=== PATIENT | female | born 1965 | race American Indian/Alaskan Native ===

== ENCOUNTER 2017-02-21 16:02 | Inpatient (IN) | payer OTHER ==
[2017-02-21] MEDS ORDERED: D50W (25GM) IV ONE ×2 (16:08→16:19)
[2017-02-21] MEDS ORDERED: NACL 0.9% 1000 ML 2,000 ML ONE (16:08)
[2017-02-21] MEDS ORDERED: QUELICIN IV ONE (16:19)
[2017-02-21] MEDS ORDERED: AMIDATE IV ONE ×2 (16:19→22:29)
[2017-02-21] MEDS ORDERED: NACL 0.9% 1000 ML 1,000 ML IV ONE ×3 (16:20→17:43)
[2017-02-21] MEDS ORDERED: ARTIFICIAL TEARS OPHTH OINT OU PRN (16:21)
[2017-02-21] MEDS ORDERED: VASELINE LIP THERAPY TP PRN (16:21)
--- NOTE | 2017-02-21 16:26 | Emergency Department Report ---
ED Altered Mental Status HPI - General Stated Complaint: AMS Time Seen by Provider: 02/21/17 16:17 Source: family, EMS Mode of arrival: Stretcher Limitations: Altered Mental Status - History of Present Illness Initial Comments: 51-year-old female with a past medical history end-stage metastatic ovarian cancer presents to the hospital with complaints of altered mental status and respiratory distress. Patient lives at home with her son. Son states that yesterday patient was normal and had physical therapy. Chronic poor appetite reported. Patient did not see his mother this morning but saw her when he returned home at 3 PM. She appeared not feeling well but was responsive. EMS reported difficulty breathing and accucheck in the 50s. No IV access prior to arrival. Upon arrival patient was having agonal respirations and minimally responsive therefore she was prepped for intubation. Son states that the patient is full code. Her oncologist discontinued further chemotherapy since patient was not responding to treatment. She has known metastasis to the liver. Patient states that since liver biopsy she has had elevated hemidiaphragm. - Related Data Allergies Allergy/AdvReac Type Severity Reaction Status Date / Time No Known Allergies Allergy Unverified 02/21/17 17:14 ED Review of Systems ROS: Stated complaint: AMS Other details as noted in HPI Comment: Unobtainable due to pts medical conditions (unresponsive) ED Physical Exam - General Limitations: Altered Mental Status - Other Other exam information: General: Unresponsive Head exam: Atraumatic, normocephalic Eyes exam: Icteric sclera ENT: food/vomitus in the posterior pharynx Neck exam: Normal inspection Respiratory exam: Agonal respirations clear to auscultation Cardiovascular: Normal rate and rhythm, normal heart sounds Abdomen: Soft, nondistended, midline vertical lower abdominal scar Extremity: Full range of motion normal inspection no deformity Back: Normal Inspection, full range of motion, no tenderness Neurologic: GCS equals 3. Patient not withdrawing to pain, unresponsive, would not follow any command open eyes on command Skin: Warm, dry, intact ED Course Vital Signs 02/21/17 02/21/17 02/21/17 15:58 16:00 16:10 Temperature Pulse Rate 67 82 83 Respiratory 12 20 12 Rate Blood Pressure 118/94 75/37 O2 Sat by Pulse Oximetry 02/21/17 02/21/17 02/21/17 16:20 16:21 16:30 Temperature Pulse Rate 77 76 70 Respiratory 12 18 Rate Blood Pressure 66/45 87/30 82/29 O2 Sat by Pulse 100 99 Oximetry 02/21/17 02/21/17 02/21/17 16:40 16:41 16:50 Temperature 95.4 F L Pulse Rate 75 82 77 Respiratory 19 6 L 15 Rate Blood Pressure 84/29 81/45 87/30 O2 Sat by Pulse 100 Oximetry 02/21/17 02/21/17 02/21/17 17:00 17:10 17:20 Temperature Pulse Rate 75 77 76 Respiratory 16 14 18 Rate Blood Pressure 84/23 72/31 86/35 O2 Sat by Pulse 100 100 Oximetry 02/21/17 02/21/17 02/21/17 17:30 17:40 17:50 Temperature Pulse Rate 77 74 75 Respiratory 18 19 19 Rate Blood Pressure 88/22 78/22 73/30 O2 Sat by Pulse 94 99 Oximetry 02/21/17 02/21/17 02/21/17 18:00 18:10 18:20 Temperature Pulse Rate 72 72 75 Respiratory 20 14 14 Rate Blood Pressure 73/30 67/31 71/26 O2 Sat by Pulse 98 90 Oximetry 02/21/17 02/21/17 02/21/17 18:30 18:40 18:50 Temperature Pulse Rate 75 75 78 Respiratory 19 19 17 Rate Blood Pressure 79/32 85/36 90/35 O2 Sat by Pulse 87 94 95 Oximetry 02/21/17 19:00 Temperature Pulse Rate 72 Respiratory 19 Rate Blood Pressure 79/35 O2 Sat by Pulse 88 Oximetry - Reevaluation(s) Reevaluation #1: 02/21/17 16:30 Patient's port accessed upon arrival. Patient received etomidate and succinylcholine via to intubation. Accu-Chek was less than 35 therefore patient received 1 amp of D50 after intubation. - ABG Interpretation Ph: 7.049 PCO2: 24 PO2: 140 Bicarbonate: 7 Interpretation: respiratory alkalosis, metabolic acidosis Additional Comments: Primary metabolic acidosis - EJ/Peripheral Line Neck L Time Out Performed: Yes Indications: multiple IV sites needed Size: 20 Dressing Placed: Tegaderm Patient Tolerated Procedure: well, other (line infiltrated resulting in subcutaneous fluid, removed) Additional Comments: same area was previously stuck by ems Neck R Time Out Performed: Yes Indications: multiple IV sites needed Skin Cleansed in Sterile Fashion: Yes Size: 20 Dressing Placed: Tegaderm Patient Tolerated Procedure: well, other (this ej line blew as well) - Intubation Time Out Performed: Yes Sedative: Etomidate Mg Given: 20 Paralytic: Succinylcholine Mg Given: 100 Laryngoscope: Rosemary Size: 4 ET Tube Size: 7.5 Tube Secured Depth (cm): 22 Tube Secured Location: lips Tube Placement Confirmation: visualized tube passing t, equal breath sounds bilat, no breath sounds over epi, confirmation by capnometr Patient Tolerated Procedure: well Intubation Complications: none - Lab Data Result diagrams: 02/21/17 16:30 02/21/17 16:30 Lab Results 02/21/17 02/21/17 02/21/17 Range/Units 16:09 16:25 16:28 WBC (4.5-11.0) K/mm3 RBC (3.65-5.03) M/mm3 Hgb (10.1-14.3) gm/dl Hct (30.3-42.9) % MCV (79-97) fl MCH (28-32) pg MCHC (30-34) % RDW (13.2-15.2) % Plt Count (140-440) K/mm3 Add Manual Diff Total Counted Seg Neuts % (Manual) (40.0-70.0) % Band Neutrophils % % Lymphocytes % (Manual) (13.4-35.0) % Reactive Lymphs % (Man) % Monocytes % (Manual) (0.0-7.3) % Eosinophils % (Manual) (0.0-4.3) % Basophils % (Manual) (0.0-1.8) % Metamyelocytes % % Myelocytes % % Promyelocytes % % Blast Cells % % Nucleated RBC % (0.0-0.9) % Seg Neutrophils # Man (1.8-7.7) K/mm3 Band Neutrophils # K/mm3 Lymphocytes # (Manual) (1.2-5.4) K/mm3 Abs React Lymphs (Man) K/mm3 Monocytes # (Manual) (0.0-0.8) K/mm3 Eosinophils # (Manual) (0.0-0.4) K/mm3 Basophils # (Manual) (0.0-0.1) K/mm3 Metamyelocytes # K/mm3 Myelocytes # K/mm3 Promyelocytes # K/mm3 Blast Cells # K/mm3 WBC Morphology Hypersegmented Neuts Hyposegmented Neuts Hypogranular Neuts Smudge Cells Toxic Granulation Toxic Vacuolation Dohle Bodies Pelger-Huet Anomaly [place] Rods Platelet Estimate Clumped Platelets Plt Clumps, EDTA Large Platelets Giant Platelets Platelet Satelliting Plt Morphology Comment RBC Morphology Dimorphic RBCs Polychromasia Hypochromasia Poikilocytosis Anisocytosis Microcytosis Macrocytosis Spherocytes Pappenheimer Bodies Sickle Cells Target Cells Tear Drop Cells Ovalocytes Helmet Cells Olivo-[place] Bodies [place] Rings Alex Cells Bite Cells Crenated Cell Elliptocytes Acanthocytes (Spur) Rouleaux Hemoglobin C Crystals Schistocytes Malaria parasites Ford Bodies Hem Pathologist Commnt PT (12.2-14.9) Sec. INR (0.87-1.13) APTT (24.2-36.6) Sec. POC ABG pH (7.35-7.45) POC ABG pCO2 (35-45) POC ABG pO2 (80-105) POC ABG HCO3 POC ABG Total CO2 POC ABG O2 Sat POC ABG Base Excess VBG pH (7.320-7.420) FiO2 % Sodium (137-145) mmol/L Potassium (3.6-5.0) mmol/L Chloride (98-107) mmol/L Carbon Dioxide (22-30) mmol/L Anion Gap mmol/L BUN (7-17) mg/dL Creatinine (0.7-1.2) mg/dL Estimated GFR ml/min BUN/Creatinine Ratio % Glucose (65-100) mg/dL POC Glucose < 40 L 141 H (70-105) Lactic Acid (0.7-2.0) mmol/L Calcium (8.4-10.2) mg/dL Magnesium (1.7-2.3) mg/dL Total Bilirubin (0.1-1.2) mg/dL AST (5-40) units/L ALT (7-56) units/L Alkaline Phosphatase (35-129) units/L Ammonia (25-60) umol/L Total Creatine Kinase (30-135) units/L CK-MB (CK-2) (0.0-4.0) ng/mL CK-MB (CK-2) Rel Index (0-4) Troponin T (0.00-0.029) ng/mL Total Protein (6.3-8.2) g/dL Albumin (3.9-5) g/dL Albumin/Globulin Ratio % Urine Color (Yellow) Urine Turbidity (Clear) Urine pH (5.0-7.0) Ur Specific [place] (1.003-1.030) Urine Protein (Negative) mg/dL Urine Glucose (UA) (Negative) mg/dL Urine Ketones (Negative) mg/dL Urine Blood (Negative) Urine Nitrite (Negative) Urine Bilirubin (Negative) Urine Urobilinogen (<2.0) mg/dL Ur Leukocyte Esterase (Negative) Urine WBC (Auto) (0.0-6.0) /HPF Urine RBC (Auto) (0.0-6.0) /HPF U Epithel Cells (Auto) (0-13.0) /HPF Hyaline Casts /LPF Urine Mucus /HPF Blood Type B POSITIVE Antibody Screen Negative Crossmatch See Detail 02/21/17 02/21/17 02/21/17 Range/Units 16:30 16:30 16:30 WBC 36.6 H (4.5-11.0) K/mm3 RBC 1.79 L (3.65-5.03) M/mm3 Hgb 4.3 L* (10.1-14.3) gm/dl Hct 15.2 L* (30.3-42.9) % MCV 85 (79-97) fl MCH 24 L (28-32) pg MCHC 29 L (30-34) % RDW 29.3 H (13.2-15.2) % Plt Count 105 L (140-440) K/mm3 Add Manual Diff Complete Total Counted 200 Seg Neuts % (Manual) 86.0 H (40.0-70.0) % Band Neutrophils % 6.0 % Lymphocytes % (Manual) 5.0 L (13.4-35.0) % Reactive Lymphs % (Man) 0.5 % Monocytes % (Manual) 1.0 (0.0-7.3) % Eosinophils % (Manual) 0 (0.0-4.3) % Basophils % (Manual) 0 (0.0-1.8) % Metamyelocytes % 1.0 % Myelocytes % 0.5 % Promyelocytes % 0 % Blast Cells % 0 % Nucleated RBC % 7.0 H (0.0-0.9) % Seg Neutrophils # Man 31.5 H (1.8-7.7) K/mm3 Band Neutrophils # 2.2 K/mm3 Lymphocytes # (Manual) 1.8 (1.2-5.4) K/mm3 Abs React Lymphs (Man) 0.2 K/mm3 Monocytes # (Manual) 0.4 (0.0-0.8) K/mm3 Eosinophils # (Manual) 0.0 (0.0-0.4) K/mm3 Basophils # (Manual) 0.0 (0.0-0.1) K/mm3 Metamyelocytes # 0.4 K/mm3 Myelocytes # 0.2 K/mm3 Promyelocytes # 0.0 K/mm3 Blast Cells # 0.0 K/mm3 WBC Morphology Not Reportable Hypersegmented Neuts Not Reportable Hyposegmented Neuts Not Reportable Hypogranular Neuts Not Reportable Smudge Cells Not Reportable Toxic Granulation Not Reportable Toxic Vacuolation Not Reportable Dohle Bodies Not Reportable Pelger-Huet Anomaly Not Reportable [place] Rods Not Reportable Platelet Estimate Consistent w auto Clumped Platelets Not Reportable Plt Clumps, EDTA Not Reportable Large Platelets 1+ Giant Platelets Not Reportable Platelet Satelliting Not Reportable Plt Morphology Comment Not Reportable RBC Morphology Not Reportable Dimorphic RBCs Yes Polychromasia Not Reportable Hypochromasia 2+ Poikilocytosis Not Reportable Anisocytosis 2+ Microcytosis Not Reportable Macrocytosis Not Reportable Spherocytes Not Reportable Pappenheimer Bodies Not Reportable Sickle Cells Not Reportable Target Cells Not Reportable Tear Drop Cells Not Reportable Ovalocytes Not Reportable Helmet Cells Not Reportable Olivo-[place] Bodies Not Reportable [place] Rings Not Reportable [place] Cells Not Reportable Bite Cells Not Reportable Crenated Cell Not Reportable Elliptocytes Not Reportable Acanthocytes (Spur) Not Reportable Rouleaux Not Reportable Hemoglobin C Crystals Not Reportable Schistocytes Not Reportable Malaria parasites Not Reportable Ford Bodies Not Reportable Hem Pathologist Commnt No PT 70.3 H (12.2-14.9) Sec. INR 8.31 H* (0.87-1.13) APTT 47.0 H (24.2-36.6) Sec. POC ABG pH (7.35-7.45) POC ABG pCO2 (35-45) POC ABG pO2 (80-105) POC ABG HCO3 POC ABG Total CO2 POC ABG O2 Sat POC ABG Base Excess VBG pH (7.320-7.420) FiO2 % Sodium 133 L (137-145) mmol/L Potassium 5.5 H (3.6-5.0) mmol/L Chloride 90.5 L (98-107) mmol/L Carbon Dioxide 7 L* (22-30) mmol/L Anion Gap 41 mmol/L BUN 71 H (7-17) mg/dL Creatinine 2.1 H (0.7-1.2) mg/dL Estimated GFR 30 ml/min BUN/Creatinine Ratio 33.80 % Glucose 264 H (65-100) mg/dL POC Glucose (70-105) Lactic Acid (0.7-2.0) mmol/L Calcium 8.9 (8.4-10.2) mg/dL Magnesium (1.7-2.3) mg/dL Total Bilirubin 4.6 H (0.1-1.2) mg/dL AST 561 H (5-40) units/L ALT 179 H (7-56) units/L Alkaline Phosphatase 434 H (35-129) units/L Ammonia (25-60) umol/L Total Creatine Kinase 29 L (30-135) units/L CK-MB (CK-2) 1.4 (0.0-4.0) ng/mL CK-MB (CK-2) Rel Index 4.8 H (0-4) Troponin T < 0.010 (0.00-0.029) ng/mL Total Protein 6.2 L (6.3-8.2) g/dL Albumin 1.7 L (3.9-5) g/dL Albumin/Globulin Ratio 0.4 % Urine Color (Yellow) Urine Turbidity (Clear) Urine pH (5.0-7.0) Ur Specific [place] (1.003-1.030) Urine Protein (Negative) mg/dL Urine Glucose (UA) (Negative) mg/dL Urine Ketones (Negative) mg/dL Urine Blood (Negative) Urine Nitrite (Negative) Urine Bilirubin (Negative) Urine Urobilinogen (<2.0) mg/dL Ur Leukocyte Esterase (Negative) Urine WBC (Auto) (0.0-6.0) /HPF Urine RBC (Auto) (0.0-6.0) /HPF U Epithel Cells (Auto) (0-13.0) /HPF Hyaline Casts /LPF Urine Mucus /HPF Blood Type Antibody Screen Crossmatch 02/21/17 02/21/17 02/21/17 Range/Units 16:30 17:05 17:28 WBC (4.5-11.0) K/mm3 RBC (3.65-5.03) M/mm3 Hgb (10.1-14.3) gm/dl Hct (30.3-42.9) % MCV (79-97) fl MCH (28-32) pg MCHC (30-34) % RDW (13.2-15.2) % Plt Count (140-440) K/mm3 Add Manual Diff Total Counted Seg Neuts % (Manual) (40.0-70.0) % Band Neutrophils % % Lymphocytes % (Manual) (13.4-35.0) % Reactive Lymphs % (Man) % Monocytes % (Manual) (0.0-7.3) % Eosinophils % (Manual) (0.0-4.3) % Basophils % (Manual) (0.0-1.8) % Metamyelocytes % % Myelocytes % % Promyelocytes % % Blast Cells % % Nucleated RBC % (0.0-0.9) % Seg Neutrophils # Man (1.8-7.7) K/mm3 Band Neutrophils # K/mm3 Lymphocytes # (Manual) (1.2-5.4) K/mm3 Abs React Lymphs (Man) K/mm3 Monocytes # (Manual) (0.0-0.8) K/mm3 Eosinophils # (Manual) (0.0-0.4) K/mm3 Basophils # (Manual) (0.0-0.1) K/mm3 Metamyelocytes # K/mm3 Myelocytes # K/mm3 Promyelocytes # K/mm3 Blast Cells # K/mm3 WBC Morphology Hypersegmented Neuts Hyposegmented Neuts Hypogranular Neuts Smudge Cells Toxic Granulation Toxic Vacuolation Dohle Bodies Pelger-Huet Anomaly [place] Platelet Estimate Clumped Platelets Plt Clumps, EDTA Large Platelets Giant Platelets Platelet Satelliting Plt Morphology Comment RBC Morphology Dimorphic RBCs Polychromasia Hypochromasia Poikilocytosis Anisocytosis Microcytosis Macrocytosis Spherocytes Pappenheimer Bodies Sickle Cells Target Cells Tear Drop Cells Ovalocytes Helmet Cells Olivo-[place] Bodies [place] Rings Alex Cells Bite Cells Crenated Cell Elliptocytes Acanthocytes (Spur) Rouleaux Hemoglobin C Crystals Schistocytes Malaria parasites [place] Bodies Hem Pathologist Commnt PT (12.2-14.9) Sec. INR (0.87-1.13) APTT (24.2-36.6) Sec. POC ABG pH (7.35-7.45) POC ABG pCO2 (35-45) POC ABG pO2 (80-105) POC ABG HCO3 POC ABG Total CO2 POC ABG O2 Sat POC ABG Base Excess VBG pH (7.320-7.420) FiO2 % Sodium (137-145) mmol/L Potassium (3.6-5.0) mmol/L Chloride (98-107) mmol/L Carbon Dioxide (22-30) mmol/L Anion Gap mmol/L BUN (7-17) mg/dL Creatinine (0.7-1.2) mg/dL Estimated GFR ml/min BUN/Creatinine Ratio % Glucose (65-100) mg/dL POC Glucose 118 H (70-105) Lactic Acid (0.7-2.0) mmol/L Calcium (8.4-10.2) mg/dL Magnesium 2.9 H (1.7-2.3) mg/dL Total Bilirubin (0.1-1.2) mg/dL AST (5-40) units/L ALT (7-56) units/L Alkaline Phosphatase (35-129) units/L Ammonia (25-60) umol/L Total Creatine Kinase (30-135) units/L CK-MB (CK-2) (0.0-4.0) ng/mL CK-MB (CK-2) Rel Index (0-4) Troponin T (0.00-0.029) ng/mL Total Protein (6.3-8.2) g/dL Albumin (3.9-5) g/dL Albumin/Globulin Ratio % Urine Color [place] (Yellow) Urine Turbidity Cloudy (Clear) Urine pH 5.0 (5.0-7.0) Ur Specific [place] 1.016 (1.003-1.030) Urine Protein 100 mg/dl (Negative) mg/dL Urine Glucose (UA) Negative (Negative) mg/dL Urine Ketones Trace (Negative) mg/dL Urine Blood Negative (Negative) Urine Nitrite Negative (Negative) Urine Bilirubin Negative (Negative) Urine Urobilinogen 4.0 (<2.0) mg/dL Ur Leukocyte Esterase Negative (Negative) Urine WBC (Auto) 6.0 (0.0-6.0) /HPF Urine RBC (Auto) 1.0 (0.0-6.0) /HPF U Epithel Cells (Auto) 1.0 (0-13.0) /HPF Hyaline Casts 50 /LPF Urine Mucus Few /HPF Blood Type Antibody Screen Crossmatch 02/21/17 02/21/17 02/21/17 Range/Units 17:34 Unknown Unknown WBC (4.5-11.0) K/mm3 RBC (3.65-5.03) M/mm3 Hgb (10.1-14.3) gm/dl Hct (30.3-42.9) % MCV (79-97) fl MCH (28-32) pg MCHC (30-34) % RDW (13.2-15.2) % Plt Count (140-440) K/mm3 Add Manual Diff Total Counted Seg Neuts % (Manual) (40.0-70.0) % Band Neutrophils % % Lymphocytes % (Manual) (13.4-35.0) % Reactive Lymphs % (Man) % Monocytes % (Manual) (0.0-7.3) % Eosinophils % (Manual) (0.0-4.3) % Basophils % (Manual) (0.0-1.8) % Metamyelocytes % % Myelocytes % % Promyelocytes % % Blast Cells % % Nucleated RBC % (0.0-0.9) % Seg Neutrophils # Man (1.8-7.7) K/mm3 Band Neutrophils # K/mm3 Lymphocytes # (Manual) (1.2-5.4) K/mm3 Abs React Lymphs (Man) K/mm3 Monocytes # (Manual) (0.0-0.8) K/mm3 Eosinophils # (Manual) (0.0-0.4) K/mm3 Basophils # (Manual) (0.0-0.1) K/mm3 Metamyelocytes # K/mm3 Myelocytes # K/mm3 Promyelocytes # K/mm3 Blast Cells # K/mm3 WBC Morphology Hypersegmented Neuts Hyposegmented Neuts Hypogranular Neuts Smudge Cells Toxic Granulation Toxic Vacuolation Dohle Bodies Pelger-Huet Anomaly [place] Rod[place] Platelet Estimate Clumped Platelets Plt Clumps, EDTA Large Platelets Giant Platelets Platelet Satelliting Plt Morphology Comment RBC Morphology Dimorphic RBCs Polychromasia Hypochromasia Poikilocytosis Anisocytosis Microcytosis Macrocytosis Spherocytes Pappenheimer Bodies Sickle Cells Target Cells Tear Drop Cells Ovalocytes Helmet Cells Olivo-[place] Bodies [place] Rings [place] Cells Bite Cells Crenated Cell Elliptocytes Acanthocytes (Spur) Rouleaux Hemoglobin C Crystals Schistocytes Malaria parasites [place] Bodies Hem Pathologist Commnt PT (12.2-14.9) Sec. INR (0.87-1.13) APTT (24.2-36.6) Sec. POC ABG pH 7.049 L (7.35-7.45) POC ABG pCO2 25.2 L (35-45) POC ABG pO2 140 H (80-105) POC ABG HCO3 7.0 POC ABG Total CO2 8 POC ABG O2 Sat 98 POC ABG Base Excess -24 VBG pH 7.125 L* (7.320-7.420) FiO2 50 % Sodium (137-145) mmol/L Potassium (3.6-5.0) mmol/L Chloride (98-107) mmol/L Carbon Dioxide (22-30) mmol/L Anion Gap mmol/L BUN (7-17) mg/dL Creatinine (0.7-1.2) mg/dL Estimated GFR ml/min BUN/Creatinine Ratio % Glucose (65-100) mg/dL POC Glucose (70-105) Lactic Acid 18.4 H* (0.7-2.0) mmol/L Calcium (8.4-10.2) mg/dL Magnesium (1.7-2.3) mg/dL Total Bilirubin (0.1-1.2) mg/dL AST (5-40) units/L ALT (7-56) units/L Alkaline Phosphatase (35-129) units/L Ammonia (25-60) umol/L Total Creatine Kinase (30-135) units/L CK-MB (CK-2) (0.0-4.0) ng/mL CK-MB (CK-2) Rel Index (0-4) Troponin T (0.00-0.029) ng/mL Total Protein (6.3-8.2) g/dL Albumin (3.9-5) g/dL Albumin/Globulin Ratio % Urine Color (Yellow) Urine Turbidity (Clear) Urine pH (5.0-7.0) Ur Specific [place] (1.003-1.030) Urine Protein (Negative) mg/dL Urine Glucose (UA) (Negative) mg/dL Urine Ketones (Negative) mg/dL Urine Blood (Negative) Urine Nitrite (Negative) Urine Bilirubin (Negative) Urine Urobilinogen (<2.0) mg/dL Ur Leukocyte Esterase (Negative) Urine WBC (Auto) (0.0-6.0) /HPF Urine RBC (Auto) (0.0-6.0) /HPF U Epithel Cells (Auto) (0-13.0) /HPF Hyaline Casts /LPF Urine Mucus /HPF Blood Type Antibody Screen Crossmatch 02/21/17 Range/Units Unknown WBC (4.5-11.0) K/mm3 RBC (3.65-5.03) M/mm3 Hgb (10.1-14.3) gm/dl Hct (30.3-42.9) % MCV (79-97) fl MCH (28-32) pg MCHC (30-34) % RDW (13.2-15.2) % Plt Count (140-440) K/mm3 Add Manual Diff Total Counted Seg Neuts % (Manual) (40.0-70.0) % Band Neutrophils % % Lymphocytes % (Manual) (13.4-35.0) % Reactive Lymphs % (Man) % Monocytes % (Manual) (0.0-7.3) % Eosinophils % (Manual) (0.0-4.3) % Basophils % (Manual) (0.0-1.8) % Metamyelocytes % % Myelocytes % % Promyelocytes % % Blast Cells % % Nucleated RBC % (0.0-0.9) % Seg Neutrophils # Man (1.8-7.7) K/mm3 Band Neutrophils # K/mm3 Lymphocytes # (Manual) (1.2-5.4) K/mm3 Abs React Lymphs (Man) K/mm3 Monocytes # (Manual) (0.0-0.8) K/mm3 Eosinophils # (Manual) (0.0-0.4) K/mm3 Basophils # (Manual) (0.0-0.1) K/mm3 Metamyelocytes # K/mm3 Myelocytes # K/mm3 Promyelocytes # K/mm3 Blast Cells # K/mm3 WBC Morphology Hypersegmented Neuts Hyposegmented Neuts Hypogranular Neuts Smudge Cells Toxic Granulation Toxic Vacuolation Dohle Bodies Pelger-Huet Anomaly [place] Platelet Estimate Clumped Platelets Plt Clumps, EDTA Large Platelets Giant Platelets Platelet Satelliting Plt Morphology Comment RBC Morphology Dimorphic RBCs Polychromasia Hypochromasia Poikilocytosis Anisocytosis Microcytosis Macrocytosis Spherocytes Pappenheimer Bodies Sickle Cells Target Cells Tear Drop Cells Ovalocytes Helmet Cells Olivo-[place] Bodies [place] Rings [place] Cells Bite Cells Crenated Cell Elliptocytes Acanthocytes (Spur) Rouleaux Hemoglobin C Crystals Schistocytes Malaria parasites [place] Bodies Hem Pathologist Commnt PT (12.2-14.9) Sec. INR (0.87-1.13) APTT (24.2-36.6) Sec. POC ABG pH (7.35-7.45) POC ABG pCO2 (35-45) POC ABG pO2 (80-105) POC ABG HCO3 POC ABG Total CO2 POC ABG O2 Sat POC ABG Base Excess VBG pH (7.320-7.420) FiO2 % Sodium (137-145) mmol/L Potassium (3.6-5.0) mmol/L Chloride (98-107) mmol/L Carbon Dioxide (22-30) mmol/L Anion Gap mmol/L BUN (7-17) mg/dL Creatinine (0.7-1.2) mg/dL Estimated GFR ml/min BUN/Creatinine Ratio % Glucose (65-100) mg/dL POC Glucose (70-105) Lactic Acid (0.7-2.0) mmol/L Calcium (8.4-10.2) mg/dL Magnesium (1.7-2.3) mg/dL Total Bilirubin (0.1-1.2) mg/dL AST (5-40) units/L ALT (7-56) units/L Alkaline Phosphatase (35-129) units/L Ammonia 134.0 H (25-60) umol/L Total Creatine Kinase (30-135) units/L CK-MB (CK-2) (0.0-4.0) ng/mL CK-MB (CK-2) Rel Index (0-4) Troponin T (0.00-0.029) ng/mL Total Protein (6.3-8.2) g/dL Albumin (3.9-5) g/dL Albumin/Globulin Ratio % Urine Color (Yellow) Urine Turbidity (Clear) Urine pH (5.0-7.0) Ur Specific [place] (1.003-1.030) Urine Protein (Negative) mg/dL Urine Glucose (UA) (Negative) mg/dL Urine Ketones (Negative) mg/dL Urine Blood (Negative) Urine Nitrite (Negative) Urine Bilirubin (Negative) Urine Urobilinogen (<2.0) mg/dL Ur Leukocyte Esterase (Negative) Urine WBC (Auto) (0.0-6.0) /HPF Urine RBC (Auto) (0.0-6.0) /HPF U Epithel Cells (Auto) (0-13.0) /HPF Hyaline Casts /LPF Urine Mucus /HPF Blood Type Antibody Screen Crossmatch - EKG Data -: EKG Interpreted by Me (nsr rate 75, prolonged qt) - Radiology Data Radiology results: image reviewed (xr chest: et tube good position elevated right hemidiaphram) - Medical Decision Making Patient's son and at the bedside. I explained how critical the patient is. Dr. Arce admitting physician will discussed possibly of a DO NOT RESUSCITATE. Family wants pt to remain full code. During ED stay patient received intubation, normal saline boluses 3 without significant improvement in blood pressure. Levophed initiated. Patient has guaiac positive dark brown stool with significant anemia and coagulopathy. The patient's coagulopathy likely secondary to liver failure. However, patient is also on Xarelto. 3 units of PRBC ordered, 2 units FFP ordered, vitamin K 10 units IV ordered. Patient is also hypoglycemic and hypothermic. Active warming with bearhug are initiated. 1 amp of D50 given with repeat glucose showing improvement above 100 which has remained stable on second Accu-Chek. Patient does not have any history of diabetes. Cortisol ordered to rule out adrenal insufficiency. Patient's is showing signs of septic shock. Source of infection is not identified at this time. Urine result is pending. Chest x-ray reveals right elevated hemidiaphragm and waiting official read regarding possible infiltrate. Patient was covered with vancomycin, Zosyn, and Levaquin. ABG reveals a significant metabolic acidosis with a lactic acid is 18 on labs and a bicarbonate 7 on bmp. ABG also reveals a respiratory alkalosis likely to compensate for the significant metabolic acidosis. Vital increased from 450-500 to aide in compensatory resp alkalosis. Pt's ammonia level was also elevated and NGT and Lactulose via ngt ordered - Differential Diagnosis sepsis, pneumonia, PE, ICH Critical Care Time: Yes Critical care time in (mins) excluding proc time.: 65 Critical care attestation.: If time is entered above; I have spent that time in minutes in the direct care of this critically ill patient, excluding procedure time. ED Disposition Clinical Impression: Septic shock, Hypoglycemia, Hypothermia, Anemia, Thrombocytopenia, Renal insufficiency, Hyperkalemia, Altered mental status, Guaiac positive stools, Ovarian cancer, Liver metastases, Coagulopathy, Long-term (current) use of anticoagulants, Leukocytosis, Hepatic encephalopathy Liver failure Qualifiers: Liver failure chronicity: acute Hepatic coma status: with hepatic coma Qualified Code(s): K72.01 - Acute and subacute hepatic failure with coma Disposition: OP ADMITTED IP TO THIS HOSP Is pt being admited?: Yes Condition: Stable Time of Disposition: 18:39 (Dr Lizzette arce/hosp)
[2017-02-21] MEDS ORDERED: NACL 0.9% 500 ML IV SCH (17:00)
[2017-02-21 17:02] LABS: Mean Corpuscular HGB Conc 29 % (30-34); Mean Corpuscular Volume 85 fl (79-97); Platelet Count 105 K/mm3 (140-440); Red Blood Count 1.79 M/mm3 (3.65-5.03)
--- NOTE | 2017-02-21 17:13 | Admit Criteria Form ---
Admission Criteria Documentation: SEVERE SEPSIS Clinical Indications for Admission to Inpatient Care (Place 'X' for any and all applicable criteria): Hospital admission is needed for appropriate care of the patient because of ANY ONE of the following: [X]I. Hemodynamic instability indicated by ANY ONE of the following(1)(2)(3)( 4)(5): [X]a. Vital sign abnormality not readily corrected by appropriate treatment within 12 to 24 hours indicated by ANY ONE of the following: []i) Tachycardia that persists despite appropriate treatment [X]ii) Hypotension that persists despite appropriate treatment []iii) Orthostatic vital sign changes that persist despite appropriate treatment [X]b. Vital sign abnormality that is severe indicated by ANY ONE of the following: [X]i.Inadequate perfusion indicated by ANY ONE of the following : [X]1) Lactic acidosis (greater than 2 mmol/L) []2) New abnormal capillary refill (greater than 3 seconds) []3) Reduced urine output []4) New altered mental status []5) Myocardial Ischemia [X]ii. Mean arterial pressure [A] less than 60 mm Hg []iii. Mean arterial pressure[A] less than 70 mm Hg after 30 minutes of appropriate treatment (eg, fluid resuscitation) []iv. Sustained heart rate greater than 120 beats per minute in adult []v. IV inotropic or vasopressor medication required to maintain adequate blood pressure or perfusion [X]II. Systemic or infectious condition causing severe symptoms or findings not responsive to emergency or observation care treatment (as appropriate) indicated by ANY ONE of the following: []a. Cardiac arrhythmias of immediate concern(1)(2)(3) []b. Severe endocrine disorder (eg, thyrotoxicosis, adrenal insufficiency)(4)(5) []c. Seizures (eg, new or recurrent)(6) []d. New-onset end organ failure or dysfunction as indicated by ANY ONE of the following: []i. Acute unexplained hypoxemia (eg, not from lung infection or chronic disease)(7)(8)(9) []ii. Acute renal failure as indicated by new onset of ANY ONE of the following(10)(11)(12)(13)(14): []1) 3-fold rise in serum creatinine from baseline []2) Serum creatinine greater than 4 mg/dL (354 micromoles/L) with acute rise greater than 0.5 mg/dL (44.2 micromoles/L) []3) Reduction of more than 75% in estimated glomerular filtration rate from baseline. []4) Estimated glomerular filtration rate less than 35 mL/min/1.73m2 ( 0.59 mL/sec/1.73m2) in child younger than 18 years. []5) Cessation of urine output indicated by ALL of the following: []A. Adequate volume status []B. Inadequate urine output as indicated by ANY ONE of the following: []a. Urine output less than 0.3 mL/kg/hr for 24 hours []b. Anuria (urine output less than 0.1 mL/kg/hr) for 12 hours []iii. Acute mental status changes(15) []iv. Acute hepatic failure (eg, plasma bilirubin greater than 4 mg/ dL (68 micromoles/L), new INR greater than 2.0)(16)(17) []e. Unmanageable nausea and vomiting(18) []f. New-onset or uncontrolled central diabetes insipidus(19)(20) []g. Clinically significant dehydration(18)(21) []h. Hypoglycemia(22) [X]i. Acidosis (pH less than 7.35) or alkalosis (pH greater than 7.45)( 22)(23) []j. Toxic drug level that indicates need for specific monitoring or treatment(24)(25) []k. Severe electrolyte abnormalities indicated by ALL of the following( 1)(2)(3): []i. Electrolytes and associated findings are not as expected for patient baseline or acceptable treatment effects. []ii. Severe abnormalities indicated by ANY ONE of the following: []1) Sodium less than 130 mEq/L (mmol/L) (new) []2) Sodium less than 135 mEq/L (mmol/L) with ANY ONE of the following: []A. Uncorrectable (to near normal or chronic baseline) after trial of outpatient and emergency treatment []B. Altered mental status []C. Seizures []D. Severe medical etiology requiring inpatient management (eg , heart failure, hypovolemia) []3) Sodium greater than 155 mEq/L (mmol/L) []4) Sodium greater than 150 mEq/L (mmol/L) with ANY ONE of the following: []A. Uncorrectable (to near normal or chronic baseline) with outpatient and emergency treatment []B. Altered mental status []C. Seizures []D. Severe medical etiology (eg, hypovolemia, diabetes insipidus) []5) Potassium less than 2.5 mEq/L (mmol/L) despite outpatient and emergency treatment []6) Potassium less than 3 mEq/L (mmol/L) with ANY ONE of the following : []A. Weakness []B. Cardiac abnormality (eg, arrhythmia, conduction disturbance ) []C. Cardiac ischemia []D. Ileus []E. Ongoing medical cause requiring inpatient management (eg, acute renal wasting or SIADH) []F. Other severe symptoms []7) Potassium greater than 6.5 mEq/L (mmol/L) []8) Potassium greater than 5 mEq/L (mmol/L) with ANY ONE of the following: []A. Uncorrectable (to near normal or chronic baseline) with outpatient and emergency treatment []B. Severe ECG findings[A] []C. Acute worsening of renal failure (creatinine greater than 2.5 mg/dL (221 micromoles/L) or significant elevation for age and size) []D. Severe weakness []E. Severe medical etiology (eg, hemolysis, infection, drug overdose) []9) Calcium less than 7 mg/dL (1.75 mmol/L) despite outpatient and emergency treatment(5) []10) Calcium less than 8 mg/dL (2 mmol/L) with significant symptoms or findings (eg, altered mental status, muscle spasms, seizures, breathing difficulty, cardiac abnormality (eg, arrhythmia or conduction disturbance))(5) []11) Calcium greater than 14 mg/dL (3.5 mmol/L)(5) []12) Calcium greater than 12 mg/dL (3 mmol/L) with ANY ONE of the following(5): []A. Uncorrectable (to near normal or chronic baseline) with outpatient and emergency treatment []B. Significant dehydration or hypovolemia as indicated by ALL of the following(3)(6)(7): []a. Not resolved with initial treatments []b. Clinically significant dehydration as indicated by ANY ONE of the following: [](1) Vomiting refractory to outpatient treatment (ie, precluding oral rehydration) [](2) Inability to drink [](3) Hypernatremia or other electrolyte abnormality unable to be corrected with outpatient and emergency treatment [](4) Failure to remain hydrated with outpatient therapy [](5) Reduced urine output [](6) Hypotension [](7) Serious cause for dehydration requiring acute hospitalization ( eg, bowel obstruction, increased intracranial pressure, infectious cause) [](8) Child with ANY ONE of the following(8): [](i) Severe abdominal tenderness [](ii) Adequate care not available at home [](iii) Severe dehydration (greater than 9% loss of body weight) []C. Significant symptoms or findings (eg, altered mental status , cardiac abnormality (eg, arrhythmia, conduction disturbance), malignant etiology requiring inpatient treatment) []13) Phosphorus less than 1 mg/dL (0.32 mmol/L) []14) Phosphorus less than 1.5 mg/dL (0.48 mmol/L) with ANY ONE of the following: []A. Patient unresponsive to outpatient and emergency treatment []B. Significant symptoms or findings (eg, weakness, altered mental status, breathing difficulty, seizures, rhabdomyolysis) []15) Phosphorus greater than 10 mg/dL (3.2 mmol/L) []16) Phosphorus greater than 4.5 mg/dL (1.45 mmol/L) (new) with ANY ONE of the following: []A. Severe medical etiology (eg, crush injury, acute renal failure) []B. Associated hypocalcemia with significant findings (eg, neurologic symptoms, altered mental status, muscle spasms, seizures, breathing difficulty, cardiac abnormality (eg, arrhythmia, conduction disturbance)) []16) Magnesium less than 1 mg/dL (0.41 mmol/L) []17) Magnesium less than 1.5 mg/dL (0.62 mmol/L) with ANY ONE of the following: []A. Patient unresponsive to outpatient and emergency treatment []B. Associated hypocalcemia with significant findings (eg, altered mental status, muscle spasms, seizures, breathing difficulty, cardiac abnormality (eg, arrhythmia, conduction disturbance)) []C. Associated hypokalemia (potassium less than 3 mEq/L (mmol/L )) with risk of arrhythmia []18) Magnesium greater than 4 mEq/L (2 mmol/L) []19) Magnesium greater than 2.5 mEq/L (1.25 mmol/L) with significant symptoms or findings (eg, weakness, altered mental status, cardiac abnormality (eg, arrhythmia, conduction disturbance), breathing difficulty, severe medical etiology (eg, renal failure, hypovolemia)) []20) Uric acid greater than 20 mg/dL (1190 micromoles/L)(9) []21) Uric acid greater than 8 mg/dL (476 micromoles/L) with significant symptoms or findings of tumor lysis syndrome (eg, creatinine greater than 1.5 times upper limit of normal, cardiac abnormality (eg , arrhythmia, conduction disturbance), seizure)(9) [X]III. High fever or other high-risk infection situation as indicated by ANY ONE of the following(26)(27)(28): []a. Outpatient and observation care antimicrobial treatment unavailable, not effective, or not appropriate []b. Documented bacteremia []c. Temperature greater than 104.9 degrees F (40.5 degrees C) (oral) [X]d. Temperature greater than 103.1 degrees F (39.5 degrees C) (oral) or less than 96.8 degrees F (36 degrees C) (rectal) that does not respond to emergency treatment and observation care []IV. High-risk febrile neutropenia[A] as indicated by ANY ONE of the following(29)(30)(31)(32): []a. Profound neutropenia[B] anticipated to extend for more than 7 days []b. Hemodynamic instability []c. Hypoxemia []d. Tachypnea []e. Altered mental status []f. New-onset abdominal pain []g. New-onset vomiting or diarrhea []h. Oral or gastrointestinal mucositis that interferes with swallowing or causes severe diarrhea []i. Focal infection (eg, cellulitis, pneumonia, central line or catheter infection, perirectal abscess) []j. Renal insufficiency (eg, GFR of less than 30 mL/min/1.73m2 (0.5 mL/sec /1.73m2)). []k. Severe liver dysfunction (transaminase levels greater than 5 times normal) []l. Platelet count less than 50,000/mm3 (50 x109/L)(33) []m. Leukemia or lymphoma induction therapy []n. Leukemia not in complete remission or with evidence of disease progression []o. Bone marrow transplant patient []p. Alemtuzumab being used for therapy []q. [employer] Supportive Care in Cancer (MASCC) Risk Index score of less than 21[C](33)(35). []V. Isolation required (eg, tuberculosis that requires isolation, Ebola infection)[D](36)(37)(38)(39)(40) []. Gangrene that requires treatment beyond emergency or observation level care(41)(42) []VII. Antitoxin administration and ongoing observation required (eg, tetanus, botulism)(43)(44) []. Suspected infection with rapid progression or severe symptoms as indicated by ANY ONE of the following(45): []a. Streptococcal or staphylococcal toxic shock(46) []b. Diphtheria(47) []c. Hantavirus(48) []d. Severe acute respiratory syndrome(8)(49) []e. Anthrax(50) []f. Ebola[D](36)(37)(38) []g. Necrotizing soft tissue infection(41)(42) []h. Plague(50) []i. Other suspected infection that requires care beyond emergency or observation level care []VII. Severe adverse drug or systemic toxin reaction as indicated by ANY ONE of the following(24): []a. Serotonin syndrome(51)(52) []b. Neuroleptic malignant syndrome(51)(52) []c. Cholinergic syndrome with severe symptoms (eg, bronchorrhea, weakness , mental status changes, seizures)(53) []d. Anticholinergic syndrome []e. Sympathetic syndrome with severe symptoms (eg, seizures, mental status changes, cardiac dysrhythmias) []f. Other severe adverse drug or systemic toxin reaction that remains after emergency or observation level care (as appropriate) []VIII. Allergic reaction with severe symptoms (not responsive to emergency or observation care treatment as appropriate), including ANY ONE of the following(54): []a. Airway edema (pharyngeal, epiglottic, or laryngeal edema) []b. Stridor []c. Respiratory failure []d. Bronchospasm []e. Hypotension []IX. Environmental emergency (not responsive to emergency or observation care treatment as appropriate) as indicated by ANY ONE of the following(55)(56): []a. Hyperthermia []b. Heat stroke []c. Heat exhaustion []d. Hypothermia (temperature less than 95 degrees F (35 degrees C) rectal) (57) []e. Electrocution(58) []X. Complications of transplanted organ (ie, not covered elsewhere)[E] indicated by ANY ONE of the following(59): []a. Acute graft rejection (or graft vs. host disease)[F] requiring inpatient management (eg, intravenous immunosuppression)(60)(61)(62)( 63) []b. Acute failure of transplanted organ necessitating inpatient care (eg, cannot be managed in other setting) []c. Infection requiring inpatient management (eg, Hemodynamic instability, need for intravenous antimicrobial treatment)(64)(65) []d. Other complication of transplanted organ requiring inpatient management []XI. Systemic or Infectious Condition condition, symptom, or finding for which emergency and observation care have failed or are not considered appropriate. See General Criteria: Observation Care, General Admission Criteria or Pediatric General Admission Criteria guideline as appropriate. (Contents from SEVERE SEPSIS and SYSTEMIC OR INFECTIOUS CONDITION clinical indications for admission to inpatient care have been integrated in this form) The original [facility] content created by [email or web address] has been revised. The portions of the content which have been revised are identified through the use of italic text or in bold and [facility] has neither reviewed nor approved the modified material. All other unmodified content is copyright [facility]. Please see references footnoted in the original [facility] edition 2016 Admission Criteria Met: Yes
[2017-02-21 17:25] LABS: Creatine Kinase MB 1.4 ng/mL (0.0-4.0)
[2017-02-21 17:27] LABS: Alanine Aminotransferase 179 units/L (7-56); Albumin 1.7 g/dL (3.9-5); Albumin/Globulin Ratio 0.4 %; Alkaline Phosphatase 434 units/L (35-129); Bilirubin,Total 4.6 mg/dL (0.1-1.2); Blood Urea Nitrogen 71 mg/dL (7-17); Calcium 8.9 mg/dL (8.4-10.2); Chloride 90.5 mmol/L (98-107); Creatine Kinase 29 units/L (30-135); Glucose 264 mg/dL (65-100); Potassium 5.5 mmol/L (3.6-5.0); Sodium 133 mmol/L (137-145); Total Protein 6.2 g/dL (6.3-8.2)
[2017-02-21 17:28] LABS: INR 8.31 (0.87-1.13); White Blood Count 36.6 K/mm3 (4.5-11.0)
[2017-02-21 17:29] LABS: Hematocrit 15.2 % (30.3-42.9); Hemoglobin 4.3 gm/dl (10.1-14.3); Mean Corpuscular Hemoglobin 24 pg (28-32); Red Cell Distribution Width 29.3 % (13.2-15.2)
[2017-02-21 17:33] LABS: Anion Gap 41 mmol/L
[2017-02-21 17:36] LABS: Carbon Dioxide 7 mmol/L (22-30)
[2017-02-21 17:41] LABS: Bilirubin,Urine Negative (Negative)
[2017-02-21] MEDS ORDERED: VANCOMYCIN VIAL IV ONE (17:41)
[2017-02-21] MEDS ORDERED: NACL 0.9% 500 ML 500 ML IV ONE ×2 (17:41→18:01)
[2017-02-21] MEDS ORDERED: ZOSYN/NS 4.5GM/100ML 4.5 GM/100 ML VIAL IV ONE (17:41)
[2017-02-21] MEDS ORDERED: LEVAQUIN 750MG/150ML 750 MG/150 ML BAG IV ONE (17:41)
[2017-02-21 17:42] LABS: Blood,Urine Negative (Negative); Ketones,Urine Trace mg/dL (Negative); Leukocyte Esterase,Urine Negative (Negative); Nitrite,Urine Negative (Negative)
[2017-02-21 17:43] LABS: Mucus,Urine Few /HPF
[2017-02-21] MEDS ORDERED: DILAUDID ONE ×2 (17:48→17:50)
[2017-02-21 17:58] LABS: ISTAT Base Excess -24; ISTAT PCO2 25.2 (35-45); ISTAT PH 7.049 (7.35-7.45); ISTAT PO2 140 (80-105); ISTAT SO2 98; ISTAT TCO2 8
[2017-02-21] MEDS ORDERED: VANCOMYCIN PHARMACY TO DOSE IV SCH (18:00)
[2017-02-21] MEDS ORDERED: VANCOMYCIN 1,750 MG in NACL 0.9% 500 ML 500 ML IV SCH (18:00)
[2017-02-21] MEDS: LEVOPHED DRIP 4 MG/NS 250 ML 4 MG/250 ML BAG IV SCH (18:35)
[2017-02-21 18:51] LABS: Basophils % (Manual) 0 % (0.0-1.8); Blastocytes % (Manual) 0 %; Eosinophils % (Manual) 0 % (0.0-4.3); Total Cells Counted Percent 2.5
[2017-02-21 18:52] LABS: Anisocytosis 2+; Hypochromasia 2+
[2017-02-21 18:53] LABS: Large Platelets 1+; Platelet Estimate Consistent w Auto
[2017-02-21] MEDS ORDERED: VANCOMYCIN 1,750 MG in NACL 0.9% 500 ML 500 ML IV ONE (19:00)
--- NOTE | 2017-02-21 19:12 | XRay Report ---
FINAL REPORT EXAM: XR CHEST 1V AP HISTORY: post intubation TECHNIQUE: AP portable view(s) of the chest obtained. PRIORS: None. FINDINGS: No mediastinal shift. Cardiac silhouette is not enlarged. Tip of patient's endotracheal tube is approximately 3-4 centimeters above the tara. A right chest port is present in satisfactory position. A large layering right pleural effusion is present. No pneumothorax or acute skeletal finding. IMPRESSION: Endotracheal tube appears satisfactory in position. Large right pleural effusion underlying airspace disease can go undetected in this setting.
[2017-02-21 19:20] LABS: Diff Status Complete
[2017-02-21] MEDS ORDERED: CEPHULAC FEEDTUBE ONE (19:21)
[2017-02-21] MEDS ORDERED: ALUM-MAG HYDROX-SIMETH 200-200-20MG/5ML PO PRN (19:22)
[2017-02-21] MEDS ORDERED: MILK OF MAGNESIA PO PRN (19:22)
[2017-02-21] MEDS ORDERED: MORPHINE IV PRN (19:22)
[2017-02-21] MEDS ORDERED: DULCOLAX PR PRN (19:22)
[2017-02-21] MEDS ORDERED: VITAMIN K (ADULT ONLY) 10 MG in NACL 0.9% 50 ML IV ONE (19:30)
--- NOTE | 2017-02-21 19:45 | History and Physical Report ---
History of Present Illness Date of examination: 02/21/17 Chief complaint: Altered mental status History of present illness: 51-year-old female with a past medical history end-stage metastatic ovarian cancer presents to the hospital with complaints of altered mental status and respiratory distress. Patient lives at home with her son. Son states that yesterday patient was normal and had physical therapy. Chronic poor appetite reported. Patient did not see his mother this morning but saw her when he returned home at 3 PM. She appeared not feeling well but was responsive. EMS reported difficulty breathing and accucheck in the 50s. No IV access prior to arrival. Upon arrival patient was having agonal respirations and minimally responsive and she was promptly intubated. Son states that the patient is full code. Her oncologist discontinued further chemotherapy since patient was not responding to treatment. She has known metastasis to the liver and apparently had liver biopsy in December Patient is currently intubated and unresponsive. Family at bedside. Had a long discussion with the family regarding her critical condition they want everything done. She has multiple lab abnormalities, she is hypothermic, hypotensive , severely anemic and in septic shock Past History Past Medical History: other (metastatic ovarian cancer with metastasis to the liver) Past Surgical History: hysterectomy, Other (liver biopsy) Social history: no significant social history Family history: diabetes. denies: cancer, hypertension Medications and Allergies Allergies Allergy/AdvReac Type Severity Reaction Status Date / Time No Known Allergies Allergy Unverified 02/21/17 17:14 Active Meds: Active Medications Al Hydrox/Mg Hydrox/Simethicone (Alum-Mag Hydrox-Simeth [id number]/5ml) 30 ml PO Q4H PRN PRN Reason: Indigestion Bisacodyl (Dulcolax) 10 mg UT QDAY PRN PRN Reason: constipation unrelieved by MOM Dextrose (D50w (25gm)) 50 ml IV PRN PRN PRN Reason: Hypoglycemia Hydrophilic Ointment (Vaseline Lip Therapy) 1 applic TP Q2HR PRN PRN Reason: Dry Lips Vancomycin HCl 1,750 mg/ (Sodium Chloride) 535 mls @ 333.333 mls/hr IV ONCE.ED ONE Stop: 02/21/17 20:36 Vancomycin HCl 1,500 mg/ (Sodium Chloride) 530 mls @ 333.333 mls/hr IV Q24H REBECA Phytonadione 10 mg/ Sodium (Chloride) 51 mls @ 100 mls/hr IV ONCE.ED ONE Stop: 02/21/17 20:00 Norepinephrine (Levophed Drip 4 Mg/Ns 250 Ml) 4 mg in 250 mls @ 7.5 mls/hr IV TITR REBECA; 2 MCG/MIN PRN Reason: Protocol Last Admin: 02/21/17 18:35 Dose: 5 mcg/min, 18.75 mls/hr Sodium Chloride (Nacl 0.9% 1000 Ml) 1,000 mls @ 125 mls/hr IV DIRECT REBECA Piperacillin Sod/Tazobactam Sod (Zosyn/Ns 4.5gm/100ml) 4.5 gm in 100 mls @ 200 mls/hr IV Q8HR REBECA PRN Reason: Protocol Insulin Aspart (Novolog) 0 units SUB-Q Q6HR REBECA PRN Reason: Protocol Magnesium Hydroxide (Milk Of Magnesia) 30 ml PO Q4H PRN PRN Reason: Constipation Morphine Sulfate (Morphine) 2 mg IV Q4H PRN PRN Reason: Pain, Moderate (4-6) Multi-Ingred Cream/Lotion/Oil/Oint (Artificial Tears Ophth Oint) 1 applic OU Q4HR PRN PRN Reason: Dry Eye(s) Pantoprazole Sodium (Protonix) 40 mg IV Q24H REBECA Sodium Chloride (Nacl 0.9% 500 Ml) 1 ml IV DIRECT REBECA Vancomycin HCl (Vancomycin Pharmacy To Dose) 1 each IV PKCONSULT REBECA PRN Reason: Protocol Review of Systems All systems: negative (as stated above in the history of present illness otherwise unobtainable as the patient is intubated and unresponsive) Exam - Constitutional Vitals: Temp Pulse Resp BP Pulse Ox 95.4 F L 72 19 79/35 88 02/21/17 16:41 02/21/17 19:00 02/21/17 19:00 02/21/17 19:00 02/21/17 19:00 General appearance: Present: severe distress, cachectic - EENT Eyes: Present: PERRL - Neck Neck: Present: supple. Absent: masses or JVD, carotid bruits - Respiratory Respiratory effort: labored Respiratory: bilateral: diminished, negative: rales, rhonchi - Cardiovascular Rhythm: other (tachycardiac) Heart Sounds: Present: S1 & S2 - Extremities Extremities: No edema Extremity abnormal: pulses diminished - Abdominal General gastrointestinal: Present: soft, non-tender. Absent: hepatomegaly, splenomegaly - Rectal Rectal Exam: deferred - Integumentary Integumentary: Present: clear - Neurologic Neurologic: other (she is unresponsive and intubated) Results - Labs CBC & Chem 7: 02/21/17 16:30 02/21/17 16:30 Labs: Abnormal lab results 02/21/17 02/21/17 02/21/17 Range/Units 16:09 16:25 16:28 WBC (4.5-11.0) K/mm3 RBC (3.65-5.03) M/mm3 Hgb (10.1-14.3) gm/dl Hct (30.3-42.9) % MCH (28-32) pg MCHC (30-34) % RDW (13.2-15.2) % Plt Count (140-440) K/mm3 Seg Neuts % (Manual) (40.0-70.0) % Lymphocytes % (Manual) (13.4-35.0) % Nucleated RBC % (0.0-0.9) % Seg Neutrophils # Man (1.8-7.7) K/mm3 PT (12.2-14.9) Sec. INR (0.87-1.13) APTT (24.2-36.6) Sec. POC ABG pH (7.35-7.45) POC ABG pCO2 (35-45) POC ABG pO2 (80-105) VBG pH (7.320-7.420) Sodium (137-145) mmol/L Potassium (3.6-5.0) mmol/L Chloride (98-107) mmol/L Carbon Dioxide (22-30) mmol/L BUN (7-17) mg/dL Creatinine (0.7-1.2) mg/dL Glucose (65-100) mg/dL POC Glucose < 40 L 141 H (70-105) Lactic Acid (0.7-2.0) mmol/L Magnesium (1.7-2.3) mg/dL Total Bilirubin (0.1-1.2) mg/dL AST (5-40) units/L ALT (7-56) units/L Alkaline Phosphatase (35-129) units/L Ammonia (25-60) umol/L Total Creatine Kinase (30-135) units/L CK-MB (CK-2) Rel Index (0-4) Total Protein (6.3-8.2) g/dL Albumin (3.9-5) g/dL Crossmatch See Detail 02/21/17 02/21/17 02/21/17 Range/Units 16:30 16:30 16:30 WBC 36.6 H (4.5-11.0) K/mm3 RBC 1.79 L (3.65-5.03) M/mm3 Hgb 4.3 L* (10.1-14.3) gm/dl Hct 15.2 L* (30.3-42.9) % MCH 24 L (28-32) pg MCHC 29 L (30-34) % RDW 29.3 H (13.2-15.2) % Plt Count 105 L (140-440) K/mm3 Seg Neuts % (Manual) 86.0 H (40.0-70.0) % Lymphocytes % (Manual) 5.0 L (13.4-35.0) % Nucleated RBC % 7.0 H (0.0-0.9) % Seg Neutrophils # Man 31.5 H (1.8-7.7) K/mm3 PT 70.3 H (12.2-14.9) Sec. INR 8.31 H* (0.87-1.13) APTT 47.0 H (24.2-36.6) Sec. POC ABG pH (7.35-7.45) POC ABG pCO2 (35-45) POC ABG pO2 (80-105) VBG pH (7.320-7.420) Sodium 133 L (137-145) mmol/L Potassium 5.5 H (3.6-5.0) mmol/L Chloride 90.5 L (98-107) mmol/L Carbon Dioxide 7 L* (22-30) mmol/L BUN 71 H (7-17) mg/dL Creatinine 2.1 H (0.7-1.2) mg/dL Glucose 264 H (65-100) mg/dL POC Glucose (70-105) Lactic Acid (0.7-2.0) mmol/L Magnesium (1.7-2.3) mg/dL Total Bilirubin 4.6 H (0.1-1.2) mg/dL AST 561 H (5-40) units/L ALT 179 H (7-56) units/L Alkaline Phosphatase 434 H (35-129) units/L Ammonia (25-60) umol/L Total Creatine Kinase 29 L (30-135) units/L CK-MB (CK-2) Rel Index 4.8 H (0-4) Total Protein 6.2 L (6.3-8.2) g/dL Albumin 1.7 L (3.9-5) g/dL Crossmatch 02/21/17 02/21/17 02/21/17 Range/Units 16:30 17:28 17:34 WBC (4.5-11.0) K/mm3 RBC (3.65-5.03) M/mm3 Hgb (10.1-14.3) gm/dl Hct (30.3-42.9) % MCH (28-32) pg MCHC (30-34) % RDW (13.2-15.2) % Plt Count (140-440) K/mm3 Seg Neuts % (Manual) (40.0-70.0) % Lymphocytes % (Manual) (13.4-35.0) % Nucleated RBC % (0.0-0.9) % Seg Neutrophils # Man (1.8-7.7) K/mm3 PT (12.2-14.9) Sec. INR (0.87-1.13) APTT (24.2-36.6) Sec. POC ABG pH 7.049 L (7.35-7.45) POC ABG pCO2 25.2 L (35-45) POC ABG pO2 140 H (80-105) VBG pH (7.320-7.420) Sodium (137-145) mmol/L Potassium (3.6-5.0) mmol/L Chloride (98-107) mmol/L Carbon Dioxide (22-30) mmol/L BUN (7-17) mg/dL Creatinine (0.7-1.2) mg/dL Glucose (65-100) mg/dL POC Glucose 118 H (70-105) Lactic Acid (0.7-2.0) mmol/L Magnesium 2.9 H (1.7-2.3) mg/dL Total Bilirubin (0.1-1.2) mg/dL AST (5-40) units/L ALT (7-56) units/L Alkaline Phosphatase (35-129) units/L Ammonia (25-60) umol/L Total Creatine Kinase (30-135) units/L CK-MB (CK-2) Rel Index (0-4) Total Protein (6.3-8.2) g/dL Albumin (3.9-5) g/dL Crossmatch 02/21/17 02/21/17 02/21/17 Range/Units Unknown Unknown Unknown WBC (4.5-11.0) K/mm3 RBC (3.65-5.03) M/mm3 Hgb (10.1-14.3) gm/dl Hct (30.3-42.9) % MCH (28-32) pg MCHC (30-34) % RDW (13.2-15.2) % Plt Count (140-440) K/mm3 Seg Neuts % (Manual) (40.0-70.0) % Lymphocytes % (Manual) (13.4-35.0) % Nucleated RBC % (0.0-0.9) % Seg Neutrophils # Man (1.8-7.7) K/mm3 PT (12.2-14.9) Sec. INR (0.87-1.13) APTT (24.2-36.6) Sec. POC ABG pH (7.35-7.45) POC ABG pCO2 (35-45) POC ABG pO2 (80-105) VBG pH 7.125 L* (7.320-7.420) Sodium (137-145) mmol/L Potassium (3.6-5.0) mmol/L Chloride (98-107) mmol/L Carbon Dioxide (22-30) mmol/L BUN (7-17) mg/dL Creatinine (0.7-1.2) mg/dL Glucose (65-100) mg/dL POC Glucose (70-105) Lactic Acid 18.4 H* (0.7-2.0) mmol/L Magnesium (1.7-2.3) mg/dL Total Bilirubin (0.1-1.2) mg/dL AST (5-40) units/L ALT (7-56) units/L Alkaline Phosphatase (35-129) units/L Ammonia 134.0 H (25-60) umol/L Total Creatine Kinase (30-135) units/L CK-MB (CK-2) Rel Index (0-4) Total Protein (6.3-8.2) g/dL Albumin (3.9-5) g/dL Crossmatch Assessment and Plan - Patient Problems (1) Septic shock Current Visit: Yes Status: Acute Plan to address problem: Etiology of septic shock is unclear at this time Urine analysis shows no evidence of infection Chest x-ray shows right basal haziness which could be effusion versus elevated right hemidiaphragm Blood cultures were drawn Started on broad-spectrum antibiotic coverage with Zosyn and vancomycin Prognosis is poor Had an extensive discussion with the patient's son who wants everything done. she is a full code ID consult on board (2) Acute kidney injury Current Visit: Yes Status: Acute Plan to address problem: Most likely secondary to dehydration, although her baseline renal function is not known Aggressive hydration and monitor serum electrolytes (3) Altered mental status Current Visit: Yes Status: Acute Qualifiers: Altered mental status type: A Coma depth: C Coma timing: C Plan to address problem: Metabolic encephalopathy secondary to sepsis (4) Anemia Current Visit: Yes Status: Acute Qualifiers: Anemia type: A Iron deficiency anemia type: I Vitamin B12 deficiency anemia type: V Folate deficiency anemia type: F Bone marrow failure anemia type: B Hemolytic anemia type: H Other causes of anemia: O Plan to address problem: Severe anemia requiring transfusion Transfuse 3 units of packed RBC Monitor H&H (5) Hypothermia Current Visit: Yes Status: Acute Qualifiers: Encounter type: E Plan to address problem: She is on a thermal blanket (6) Leukocytosis Current Visit: Yes Status: Acute Qualifiers: Leukocytosis type: L Plan to address problem: Was likely secondary to sepsis Continue present antibiotics and monitor CBC (7) Liver failure Current Visit: Yes Status: Acute Qualifiers: Liver failure chronicity: acute Hepatic coma status: with hepatic coma Qualified Code(s): K72.01 - Acute and subacute hepatic failure with coma Plan to address problem: Monitor LFTs (8) Liver metastases Current Visit: Yes Status: Acute (9) Ovarian cancer Current Visit: Yes Status: Chronic Qualifiers: Laterality: L Plan to address problem: History of terminal ovarian cancer (10) Malnutrition of moderate degree Current Visit: Yes Status: Acute
[2017-02-21] MEDS ORDERED: PROTONIX IV SCH (20:00)
[2017-02-21] MEDS ORDERED: NACL 0.9% 1000 ML 1,000 ML IV SCH (20:00)
[2017-02-21] MEDS: ZOSYN/NS 2.25 GM/50ML 2.25 GM/50 ML BAG IV SCH (21:51)
[2017-02-21] MEDS ORDERED: ZOSYN/NS 4.5GM/100ML 4.5 GM/100 ML VIAL IV SCH (22:00)
[2017-02-21] MEDS ORDERED: QUELICIN ONE (22:29)
[2017-02-22] MEDS: D50W (25GM) IV PRN ×4 (00:27→20:23)
[2017-02-22] MEDS: LEVOPHED DRIP 4 MG/NS 250 ML 4 MG/250 ML BAG IV SCH ×2 (00:28→03:05)
[2017-02-22 00:35] LABS: ISTAT Base Excess -24; ISTAT HCO3 6.4; ISTAT PCO2 22.6 (35-45); ISTAT PO2 113 (80-105); ISTAT SO2 96; ISTAT TCO2 7
[2017-02-22] MEDS ORDERED: SODIUM BICARBONATE IV ONE ×3 (00:43→04:20)
[2017-02-22] MEDS ORDERED: D5W 1,000 ML with SODIUM BICARBONATE 150 MEQ IV SCH (01:00)
[2017-02-22] MEDS ORDERED: SODIUM BICARBONATE 100 MEQ in NACL 0.9% 1000 ML 1,000 ML IV SCH ×2 (01:00→04:16)
[2017-02-22] MEDS: NOVOLOG SUB-Q SCH ×4 (01:05→17:50)
[2017-02-22] MEDS: ZOSYN/NS 2.25 GM/50ML 2.25 GM/50 ML BAG IV SCH ×4 (01:58→20:19)
[2017-02-22] MEDS ORDERED: NACL 0.9% 1000 ML 1,000 ML IV ONE (04:17)
[2017-02-22 05:19] LABS: ISTAT Base Excess -22; ISTAT HCO3 7.8; ISTAT PCO2 24.5 (35-45); ISTAT PH 7.113 (7.35-7.45); ISTAT PO2 89 (80-105); ISTAT SO2 93; ISTAT TCO2 9
[2017-02-22 05:58] LABS: Hematocrit 26.5 % (30.3-42.9); Mean Corpuscular HGB Conc 30 % (30-34); Mean Corpuscular Hemoglobin 27 pg (28-32); Mean Corpuscular Volume 88 fl (79-97); Red Blood Count 3.01 M/mm3 (3.65-5.03)
[2017-02-22 05:59] LABS: Platelet Count 79 K/mm3 (140-440); Red Cell Distribution Width 22.2 % (13.2-15.2); White Blood Count 25.7 K/mm3 (4.5-11.0)
[2017-02-22 06:15] LABS: Albumin 1.9 g/dL (3.9-5); Albumin/Globulin Ratio 0.5 %; BUN/Creatinine Ratio 26.95; Bilirubin,Total 5.4 mg/dL (0.1-1.2); Calcium 7.2 mg/dL (8.4-10.2); Chloride 99.1 mmol/L (98-107); Potassium 4.8 mmol/L (3.6-5.0)
[2017-02-22 06:36] LABS: ISTAT Base Excess -19; ISTAT HCO3 9.2; ISTAT PO2 83 (80-105); ISTAT SO2 94; ISTAT TCO2 10
[2017-02-22 07:10] LABS: Partial Thromboplastin Time 49.7 Sec. (24.2-36.6)
[2017-02-22 07:15] LABS: INR 11.28 (0.87-1.13)
[2017-02-22 07:39] LABS: Basophils % (Manual) 0 % (0.0-1.8); Blastocytes % (Manual) 0 %; Eosinophils % (Manual) 0 % (0.0-4.3)
[2017-02-22 07:40] LABS: Anisocytosis 2+; Hypochromasia 2+
[2017-02-22 07:41] LABS: Diff Status Complete; Large Platelets Few; Platelet Estimate Consistent w Auto; Polychromasia Rare; Stomatocytes Few
[2017-02-22] MEDS ORDERED: NACL 0.9% 1000 ML 1,000 ML IV SCH (08:00)
[2017-02-22] MEDS: LEVOPHED 8 MG in NACL 0.9% 250ML 242 ML IV SCH ×3 (08:01→17:35)
[2017-02-22] MEDS ORDERED: NACL 0.9% 500 ML 500 ML IV ONE (08:18)
--- NOTE | 2017-02-22 08:41 | XRay Report ---
AP CHEST :02/22/17 CLINICAL: Intubated.Follow up respiratory failure. COMPARISON:The previous day. FINDINGS: The endotracheal tube is in satisfactory position. A nasogastric tube has been inserted and is satisfactory. Right [id number] tip is in the distal SVC and unchanged. Persistent opacification of the right lung base with silhouetting of the right heart border and the right hemidiaphragm. Slightly more prominent nodular opacities in the left lung and right upper lobe. No pneumothorax. IMPRESSION: A right pleural effusion and right basal atelectasis or pneumonia. Nodular lung opacities of uncertain etiology. If there is a known cancer, metastatic disease is a consideration.
--- NOTE | 2017-02-22 11:00 | Consultation ---
History of Present Illness Consult date: 02/22/17 Requesting physician: LIZ SUMNER History of present illness: PULMONARY/CCM CONSULT (Full dictation # [id number]) Please see dictated notes for full details Past History Past Medical History: other (metastatic ovarian cancer with metastasis to the liver) Past Surgical History: hysterectomy, Other (liver biopsy) Social history: no significant social history Family history: diabetes. denies: cancer, hypertension Medications and Allergies Allergies Allergy/AdvReac Type Severity Reaction Status Date / Time No Known Allergies Allergy Unverified 02/21/17 17:14 Active Meds: Active Medications Al Hydrox/Mg Hydrox/Simethicone (Alum-Mag Hydrox-Simeth [id number]/5ml) 30 ml PO Q4H PRN PRN Reason: Indigestion Bisacodyl (Dulcolax) 10 mg IN QDAY PRN PRN Reason: constipation unrelieved by MOM Dextrose (D50w (25gm)) 50 ml IV PRN PRN PRN Reason: Hypoglycemia Last Admin: 02/22/17 10:27 Dose: 50 ml Hydrophilic Ointment (Vaseline Lip Therapy) 1 applic TP Q2HR PRN PRN Reason: Dry Lips Vancomycin HCl 1,500 mg/ (Sodium Chloride) 530 mls @ 333.333 mls/hr IV Q24H REBECA Piperacillin Sod/Tazobactam Sod (Zosyn/Ns 2.25 Gm/50ml) 2.25 gm in 50 mls @ 100 mls/hr IV Q6H REBECA Last Admin: 02/22/17 09:23 Dose: 100 mls/hr Sodium Bicarbonate 150 meq/ (Dextrose) 1,150 mls @ 50 mls/hr IV DIRECT REBECA Last Admin: 02/22/17 01:53 Dose: 50 mls/hr Sodium Chloride (Nacl 0.9% 1000 Ml) 1,000 mls @ 125 mls/hr IV DIRECT REBECA Norepinephrine 8 mg/ Sodium (Chloride) 250 mls @ 3.75 mls/hr IV TITR REBECA; 2 MCG /MIN PRN Reason: Protocol Last Admin: 02/22/17 08:01 Dose: 30 mcg/min, 56.25 mls/hr Insulin Aspart (Novolog) 0 units SUB-Q Q6HR REEBCA PRN Reason: Protocol Last Admin: 02/22/17 07:15 Dose: Not Given Magnesium Hydroxide (Milk Of Magnesia) 30 ml PO Q4H PRN PRN Reason: Constipation Morphine Sulfate (Morphine) 2 mg IV Q4H PRN PRN Reason: Pain, Moderate (4-6) Last Admin: 02/22/17 10:34 Dose: 2 mg Multi-Ingred Cream/Lotion/Oil/Oint (Artificial Tears Ophth Oint) 1 applic OU Q4HR PRN PRN Reason: Dry Eye(s) Pantoprazole Sodium (Protonix) 40 mg IV Q24H REBECA Last Admin: 02/22/17 00:10 Dose: 40 mg Sodium Chloride (Nacl 0.9% 500 Ml) 1 ml IV DIRECT REBECA Vancomycin HCl (Vancomycin Pharmacy To Dose) 1 each IV PKCONSULT REBECA PRN Reason: Protocol Physical Examination Vital signs: Vital Signs Pulse Resp 67 12 02/21/17 15:58 02/21/17 15:58 Results - Laboratory Findings CBC and BMP: 02/22/17 05:40 02/22/17 05:40 ABG POC ABG pH 7.210 (7.35-7.45) L 02/22/17 06:13 POC ABG pCO2 23.0 (35-45) L 02/22/17 06:13 POC ABG pO2 83 (80-105) 02/22/17 06:13 POC ABG HCO3 9.2 02/22/17 06:13 POC ABG Total CO2 10 02/22/17 06:13 POC ABG O2 Sat 94 02/22/17 06:13 PT/INR, D-dimer PT 89.6 Sec. (12.2-14.9) H 02/22/17 05:40 INR 11.28 (0.87-1.13) H* 02/22/17 05:40 Abnormal lab findings: Abnormal Labs 02/21/17 02/21/17 02/21/17 Unknown Unknown Unknown WBC RBC Hgb Hct MCH RDW Plt Count Seg Neuts % (Manual) Lymphocytes % (Manual) Nucleated RBC % Seg Neutrophils # Man Monocytes # (Manual) PT INR APTT POC ABG pH POC ABG pCO2 POC ABG pO2 VBG pH 7.125 L* Carbon Dioxide BUN Creatinine Glucose POC Glucose Lactic Acid 18.4 H* Calcium Total Bilirubin AST ALT Alkaline Phosphatase Ammonia 134.0 H Total Protein Albumin 02/22/17 02/22/1717 00:20 00:25 03:51 WBC RBC Hgb Hct MCH RDW Plt Count Seg Neuts % (Manual) Lymphocytes % (Manual) Nucleated RBC % Seg Neutrophils # Man Monocytes # (Manual) PT INR APTT POC ABG pH 7.060 L 7.113 L POC ABG pCO2 22.6 L 24.5 L POC ABG pO2 113 H VBG pH Carbon Dioxide BUN Creatinine Glucose POC Glucose < 40 L Lactic Acid Calcium Total Bilirubin AST ALT Alkaline Phosphatase Ammonia Total Protein Albumin 02/22/17 02/22/17 02/22/17 05:40 05:40 05:40 WBC 25.7 H RBC 3.01 L Hgb 8.0 L D Hct 26.5 L D MCH 27 L RDW 22.2 H Plt Count 79 L Seg Neuts % (Manual) 37.0 L Lymphocytes % (Manual) 9.0 L Nucleated RBC % 19.0 H Seg Neutrophils # Man 9.5 H Monocytes # (Manual) 1.0 H PT INR APTT POC ABG pH POC ABG pCO2 POC ABG pO2 VBG pH Carbon Dioxide 9 L* BUN 62 H Creatinine 2.3 H Glucose 42 L POC Glucose Lactic Acid Calcium 7.2 L D Total Bilirubin 5.4 H AST 3388 H ALT 676 H Alkaline Phosphatase 530 H Ammonia 107.0 H Total Protein 6.0 L Albumin 1.9 L 02/22/17 02/22/17 02/22/17 05:40 06:13 09:25 WBC RBC Hgb Hct MCH RDW Plt Count Seg Neuts % (Manual) Lymphocytes % (Manual) Nucleated RBC % Seg Neutrophils # Man Monocytes # (Manual) PT 89.6 H INR 11.28 H* APTT 49.7 H POC ABG pH 7.210 L POC ABG pCO2 23.0 L POC ABG pO2 VBG pH Carbon Dioxide BUN Creatinine Glucose POC Glucose Lactic Acid 18.8 H* Calcium Total Bilirubin AST ALT Alkaline Phosphatase Ammonia Total Protein Albumin
--- NOTE | 2017-02-22 11:13 | Progress Note ---
Assessment and Plan Assessment and plan: Septic shock. Patient meets criteria given the hypothermia, leukocytosis and diagnosis of pneumonia. Patient currently on pressors. Wean pressors to maintain MAP>65. Etiology likely secondary to right lower lobe pneumonia. Continue sepsis pathway. Continue IV antibodies. Follow-up blood cultures and trend like acid levels. Acute kidney injury. Etiology likely secondary to HELDER from ATN/sepsis +/- prerenal azotemia/vasomotor nephropathy. Continue aggressive IV fluid hydration for now. Nephrology consultation. Toxic metabolic encephalopathy. Continue to treat underlying causes. Acute hypoxemic respiratory failure. Continued ventilator per pulmonary. Anemia. Patient is to receive 3 units of PRBCs. Continue to follow H&H closely. Liver failure. Continue to monitor her LFTs. Coagulopathy. Etiology secondary to above. Continue FFP and vitamin K. Hematology consultation. Severe Protein calorie malnutrition. Follow-up prealbumin. Prognosis is extremely poor. The high probability of a clinically significant, sudden or life threatening deterioration of the [cardiovascular, hematological] system(s) required my full and direct attention, intervention and personal management. The aggregate critical care time was [32] minutes. This time is in addition to time spent performing reported procedures but includes the following: [x] Data Review and interpretation [x] Patient assessment and monitoring of vital signs [x] Documentation [x] Medication orders and management History Interval history: 51-year-old female with a past medical history end-stage metastatic ovarian cancer presents to the hospital with complaints of altered mental status and respiratory distress. Patient is currently intubated on mechanical ventilation and on Levophed drip. Hospitalist Physical - Constitutional Vitals: Temp Pulse Resp BP Pulse Ox 97.4 F L 87 33 H 118/50 98 02/22/17 08:00 02/22/17 07:34 02/22/17 07:00 02/22/17 07:34 02/22/17 07:34 General appearance: Present: severe distress, cachectic - EENT Eyes: Present: PERRL, EOM intact ENT: hearing intact, clear oral mucosa, dentition normal - Neck Neck: Present: supple, normal ROM - Respiratory Respiratory effort: normal Respiratory: bilateral: diminished, rhonchi - Cardiovascular Rhythm: regular Heart Sounds: Present: S1 & S2. Absent: gallop, rub - Extremities Extremities: no ischemia, No edema, Full ROM - Abdominal General gastrointestinal: soft, non-tender, non-distended, normal bowel sounds - Integumentary Integumentary: Present: clear, warm, dry - Neurologic Neurologic: CNII-XII intact, moves all extremities Results - Labs CBC & Chem 7: 02/22/17 05:40 02/22/17 05:40 Labs: Laboratory Last Values WBC 25.7 K/mm3 (4.5-11.0) H 02/22/17 05:40 RBC 3.01 M/mm3 (3.65-5.03) L 02/22/17 05:40 Hgb 8.0 gm/dl (10.1-14.3) L D 02/22/17 05:40 Hct 26.5 % (30.3-42.9) L D 02/22/17 05:40 MCV 88 fl (79-97) D 02/22/17 05:40 MCH 27 pg (28-32) L 02/22/17 05:40 MCHC 30 % (30-34) 02/22/17 05:40 RDW 22.2 % (13.2-15.2) H 02/22/17 05:40 Plt Count 79 K/mm3 (140-440) L 02/22/17 05:40 Add Manual Diff Complete 02/22/17 05:40 Total Counted 100 02/22/17 05:40 Seg Neutrophils % Ramp Supervisor 02/22/17 05:40 Seg Neuts % (Manual) 37.0 % (40.0-70.0) L 02/22/17 05:40 Band Neutrophils % 50.0 % 02/22/17 05:40 Lymphocytes % (Manual) 9.0 % (13.4-35.0) L 02/22/17 05:40 Reactive Lymphs % (Man) 0 % 02/22/17 05:40 Monocytes % (Manual) 4.0 % (0.0-7.3) 02/22/17 05:40 Eosinophils % (Manual) 0 % (0.0-4.3) 02/22/17 05:40 Basophils % (Manual) 0 % (0.0-1.8) 02/22/17 05:40 Metamyelocytes % 0 % 02/22/17 05:40 Myelocytes % 0 % 02/22/17 05:40 Promyelocytes % 0 % 02/22/17 05:40 Blast Cells % 0 % 02/22/17 05:40 Nucleated RBC % 19.0 % (0.0-0.9) H 02/22/17 05:40 Seg Neutrophils # Man 9.5 K/mm3 (1.8-7.7) H 02/22/17 05:40 Band Neutrophils # 12.9 K/mm3 02/22/17 05:40 Lymphocytes # (Manual) 2.3 K/mm3 (1.2-5.4) 02/22/17 05:40 Abs React Lymphs (Man) 0.0 K/mm3 02/22/17 05:40 Monocytes # (Manual) 1.0 K/mm3 (0.0-0.8) H 02/22/17 05:40 Eosinophils # (Manual) 0.0 K/mm3 (0.0-0.4) 02/22/17 05:40 Basophils # (Manual) 0.0 K/mm3 (0.0-0.1) 02/22/17 05:40 Metamyelocytes # 0.0 K/mm3 02/22/17 05:40 Myelocytes # 0.0 K/mm3 02/22/17 05:40 Promyelocytes # 0.0 K/mm3 02/22/17 05:40 Blast Cells # 0.0 K/mm3 02/22/17 05:40 WBC Morphology Not Reportable 02/22/17 05:40 Hypersegmented Neuts Not Reportable 02/22/17 05:40 Hyposegmented Neuts Not Reportable 02/22/17 05:40 Hypogranular Neuts Not Reportable 02/22/17 05:40 Smudge Cells Not Reportable 02/22/17 05:40 Toxic Granulation Not Reportable 02/22/17 05:40 Toxic Vacuolation Not Reportable 02/22/17 05:40 Dohle Bodies Not Reportable 02/22/17 05:40 Pelger-Huet Anomaly Not Reportable 02/22/17 05:40 [place]arris[place] Rods Not Reportable 02/22/17 05:40 Platelet Estimate Consistent w auto 02/22/17 05:40 Clumped Platelets Not Reportable 02/22/17 05:40 Plt Clumps, EDTA Not Reportable 02/22/17 05:40 Large Platelets Few 02/22/17 05:40 Giant Platelets Not Reportable 02/22/17 05:40 Platelet Satelliting Not Reportable 02/22/17 05:40 Plt Morphology Comment Not Reportable 02/22/17 05:40 RBC Morphology Not Reportable 02/22/17 05:40 Dimorphic RBCs Not Reportable 02/22/17 05:40 Polychromasia Rare 02/22/17 05:40 Hypochromasia 2+ 02/22/17 05:40 Poikilocytosis Not Reportable 02/22/17 05:40 Anisocytosis 2+ 02/22/17 05:40 Microcytosis Not Reportable 02/22/17 05:40 Macrocytosis Not Reportable 02/22/17 05:40 Spherocytes Not Reportable 02/22/17 05:40 Pappenheimer Bodies Not Reportable 02/22/17 05:40 Sickle Cells Not Reportable 02/22/17 05:40 Target Cells Not Reportable 02/22/17 05:40 Tear Drop Cells Not Reportable 02/22/17 05:40 Ovalocytes Not Reportable 02/22/17 05:40 Stomatocytes Few 02/22/17 05:40 Helmet Cells Not Reportable 02/22/17 05:40 [place] Bodies Not Reportable 02/22/17 05:40 [place] Rings Not Reportable 02/22/17 05:40 [place] Cells Not Reportable 02/22/17 05:40 Bite Cells Not Reportable 02/22/17 05:40 Crenated Cell Not Reportable 02/22/17 05:40 Elliptocytes Not Reportable 02/22/17 05:40 Acanthocytes (Spur) Not Reportable 02/22/17 05:40 Rouleaux Not Reportable 02/22/17 05:40 Hemoglobin C Crystals Not Reportable 02/22/17 05:40 Schistocytes Not Reportable 02/22/17 05:40 Malaria parasites Not Reportable 02/22/17 05:40 [place] Bodies Not Reportable 02/22/17 05:40 Hem Pathologist Commnt No 02/22/17 05:40 PT 89.6 Sec. (12.2-14.9) H 02/22/17 05:40 INR 11.28 (0.87-1.13) H* 02/22/17 05:40 APTT 49.7 Sec. (24.2-36.6) H 02/22/17 05:40 POC ABG pH 7.210 (7.35-7.45) L 02/22/17 06:13 POC ABG pCO2 23.0 (35-45) L 02/22/17 06:13 POC ABG pO2 83 (80-105) 02/22/17 06:13 POC ABG HCO3 9.2 02/22/17 06:13 POC ABG Total CO2 10 02/22/17 06:13 POC ABG O2 Sat 94 02/22/17 06:13 POC ABG Base Excess -19 02/22/17 06:13 VBG pH 7.125 (7.320-7.420) L* 02/21/17 Unknown FiO2 40 % 02/22/17 06:13 Sodium 145 mmol/L (137-145) D 02/22/17 05:40 Potassium 4.8 mmol/L (3.6-5.0) 02/22/17 05:40 Chloride 99.1 mmol/L (98-107) 02/22/17 05:40 Carbon Dioxide 9 mmol/L (22-30) L* 02/22/17 05:40 Anion Gap 42 mmol/L 02/22/17 05:40 BUN 62 mg/dL (7-17) H 02/22/17 05:40 Creatinine 2.3 mg/dL (0.7-1.2) H 02/22/17 05:40 Estimated GFR 27 ml/min 02/22/17 05:40 BUN/Creatinine Ratio 26.95 % 02/22/17 05:40 Glucose 42 mg/dL (65-100) L 02/22/17 05:40 POC Glucose 91 (70-105) 02/22/17 00:42 Hemoglobin A1c 5.2 % (4-6) 02/22/17 05:40 Lactic Acid 18.8 mmol/L (0.7-2.0) H* 02/22/17 09:25 Calcium 7.2 mg/dL (8.4-10.2) L D 02/22/17 05:40 Magnesium 2.9 mg/dL (1.7-2.3) H 02/21/17 16:30 Total Bilirubin 5.4 mg/dL (0.1-1.2) H 02/22/17 05:40 AST 3388 units/L (5-40) H 02/22/17 05:40 ALT 676 units/L (7-56) H 02/22/17 05:40 Alkaline Phosphatase 530 units/L (35-129) H 02/22/17 05:40 Ammonia 107.0 umol/L (25-60) H 02/22/17 05:40 Total Creatine Kinase 29 units/L (30-135) L 02/21/17 16:30 CK-MB (CK-2) 1.4 ng/mL (0.0-4.0) 02/21/17 16:30 CK-MB (CK-2) Rel Index 4.8 (0-4) H 02/21/17 16:30 Troponin T < 0.010 ng/mL (0.00-0.029) 02/21/17 16:30 Total Protein 6.0 g/dL (6.3-8.2) L 02/22/17 05:40 Albumin 1.9 g/dL (3.9-5) L 02/22/17 05:40 Albumin/Globulin Ratio 0.5 % 02/22/17 05:40 Urine Color Estrella (Yellow) 02/21/17 17:05 Urine Turbidity Cloudy (Clear) 02/21/17 17:05 Urine pH 5.0 (5.0-7.0) 02/21/17 17:05 Ur Specific Bow 1.016 (1.003-1.030) 02/21/17 17:05 Urine Protein 100 mg/dl mg/dL (Negative) 02/21/17 17:05 Urine Glucose (UA) Negative mg/dL (Negative) 02/21/17 17:05 Urine Ketones Trace mg/dL (Negative) 02/21/17 17:05 Urine Blood Negative (Negative) 02/21/17 17:05 Urine Nitrite Negative (Negative) 02/21/17 17:05 Urine Bilirubin Negative (Negative) 02/21/17 17:05 Urine Urobilinogen 4.0 mg/dL (<2.0) 02/21/17 17:05 Ur Leukocyte Esterase Negative (Negative) 02/21/17 17:05 Urine WBC (Auto) 6.0 /HPF (0.0-6.0) 02/21/17 17:05 Urine RBC (Auto) 1.0 /HPF (0.0-6.0) 02/21/17 17:05 U Epithel Cells (Auto) 1.0 /HPF (0-13.0) 02/21/17 17:05 Hyaline Casts 50 /LPF 02/21/17 17:05 Urine Mucus Few /HPF 02/21/17 17:05 Blood Type B POSITIVE 02/21/17 16:25 Antibody Screen Negative 02/21/17 16:25 Crossmatch See Detail 02/21/17 16:25
[2017-02-22] MEDS ORDERED: PANCREAZE DR 10,500 UNIT FEEDTUBE PRN (11:31)
[2017-02-22] MEDS ORDERED: SODIUM BICARBONATE FEEDTUBE PRN (11:31)
[2017-02-22] MEDS ORDERED: SIMPLE SYRUP FEEDTUBE PRN ×2 (11:31)
[2017-02-22] MEDS: D5W 1,000 ML with SODIUM BICARBONATE 150 MEQ IV SCH ×2 (12:08→17:35)
[2017-02-22] MEDS: VITAMIN K (ADULT ONLY) SUB-Q SCH ×2 (12:23→20:18)
[2017-02-22] MEDS: CEPHULAC PO SCH ×2 (12:23→17:52)
--- NOTE | 2017-02-22 13:41 | Event Note ---
Date: 02/22/17 - Patient has remained almost anuric essentially - has HELDER - severe sepsis with unknown cardiac function A&P: - get nephrology evaluation - leave daniel catheter in place today and re-assess daily for removal - benefits outweigh risks acutely
[2017-02-22] MEDS ORDERED: fentaNYL DRIP Premix 2,000 MCG/100 ML BAG IV SCH (14:00)
[2017-02-22] MEDS: DUONEB 0.5 MG-3 MG/3 ML SOLN IH SCH ×2 (14:17→19:31)
--- NOTE | 2017-02-22 14:30 | Consultation ---
History of Present Illness - Reason for Consult Consult date: 02/22/17 acute renal failure, metabolic acidosis - History of Present Illness The patient is a 51-year-old AAF with a medical history significant for Advanced metastatic Ovarian cancer presented to the hospital with complaints of altered mental status and respiratory distress. Unable to obtain any history from patient at this time. Information obtained from previous documentation. Son stated that the patient has chronic poor appetite and appeared unwell but was responsive. EMS reported difficulty breathing and accucheck in the 50s. Upon arrival to ER patient was having agonal respirations and minimally responsive therefore she was intubated. Son stated that the patient is full code. Her oncologist discontinued chemotherapy since patient was not responding to treatment. Her baseline renal function is unknown. On admission her creatinine was 2.1, bicarb 7, Lactate 18.4 with sever hypotension. Currently patient is on vent and Levophed. Past History Past Medical History: cancer, other (metastatic ovarian cancer with metastasis to the liver) Past Surgical History: hysterectomy, Other (liver biopsy) Social history: no significant social history Family history: diabetes. denies: cancer, hypertension Medications and Allergies Allergies Allergy/AdvReac Type Severity Reaction Status Date / Time No Known Allergies Allergy Unverified 02/21/17 17:14 Active Meds: Active Medications Al Hydrox/Mg Hydrox/Simethicone (Alum-Mag Hydrox-Simeth 505-901-24ed/5ml) 30 ml PO Q4H PRN PRN Reason: Indigestion Albuterol/Ipratropium (Duoneb 0.5 Mg-3 Mg/3 Ml Soln) 1 ampul IH TIDRT REBECA Last Admin: 02/22/17 14:17 Dose: 1 ampul Lipase/Protease/Amylase (Pancreaze Dr 10,500 Unit) 1 each FEEDTUBE PRN PRN PRN Reason: For Clogged Feeding Tube Bisacodyl (Dulcolax) 10 mg ME QDAY PRN PRN Reason: constipation unrelieved by MOM Dextrose (D50w (25gm)) 50 ml IV PRN PRN PRN Reason: Hypoglycemia Last Admin: 02/22/17 10:27 Dose: 50 ml Hydrophilic Ointment (Vaseline Lip Therapy) 1 applic TP Q2HR PRN PRN Reason: Dry Lips Vancomycin HCl 1,500 mg/ (Sodium Chloride) 530 mls @ 333.333 mls/hr IV Q24H REBECA Piperacillin Sod/Tazobactam Sod (Zosyn/Ns 2.25 Gm/50ml) 2.25 gm in 50 mls @ 100 mls/hr IV Q6H REBECA Last Admin: 02/22/17 14:22 Dose: 100 mls/hr Sodium Chloride (Nacl 0.9% 1000 Ml) 1,000 mls @ 125 mls/hr IV DIRECT REBECA Norepinephrine 8 mg/ Sodium (Chloride) 250 mls @ 3.75 mls/hr IV TITR REBECA; 2 MCG /MIN PRN Reason: Protocol Last Admin: 02/22/17 12:51 Dose: 30 mcg/min, 56.25 mls/hr Sodium Bicarbonate 150 meq/ (Dextrose) 1,150 mls @ 150 mls/hr IV DIRECT REBECA Last Admin: 02/22/17 12:08 Dose: 150 mls/hr Fentanyl Citrate (Fentanyl Drip Premix) 2,000 mcg in 100 mls @ 4.604 mls/hr IV TITR REBECA; 1 MCG/KG/HR PRN Reason: Protocol Last Admin: 02/22/17 14:08 Dose: 2 mcg/kg/hr, 9.208 mls/hr Insulin Aspart (Novolog) 0 units SUB-Q Q6HR REBECA PRN Reason: Protocol Last Admin: 02/22/17 12:17 Dose: Not Given Lactulose (Cephulac) 20 gm PO Q6H [facility] Last Admin: 02/22/17 12:23 Dose: 20 gm Magnesium Hydroxide (Milk Of Magnesia) 30 ml PO Q4H PRN PRN Reason: Constipation Morphine Sulfate (Morphine) 2 mg IV Q4H PRN PRN Reason: Pain, Moderate (4-6) Last Admin: 02/22/17 10:34 Dose: 2 mg Multi-Ingred Cream/Lotion/Oil/Oint (Artificial Tears Ophth Oint) 1 applic OU Q4HR PRN PRN Reason: Dry Eye(s) Pantoprazole Sodium (Protonix) 40 mg IV BID [facility] Phytonadione (Vitamin K (Adult Only)) 10 mg SUB-Q Q8H [facility] Stop: 02/24/17 04:01 Last Admin: 02/22/17 12:23 Dose: 10 mg Simple Syrup (Simple Syrup) 15 ml FEEDTUBE PRN PRN PRN Reason: Hypoglycemia Simple Syrup (Simple Syrup) 30 ml FEEDTUBE PRN PRN PRN Reason: Hypoglycemia Sodium Bicarbonate (Sodium Bicarbonate) 325 mg FEEDTUBE PRN PRN PRN Reason: For Clogged Feeding Tube Sodium Chloride (Nacl 0.9% 500 Ml) 1 ml IV DIRECT REBECA Vancomycin HCl (Vancomycin Pharmacy To Dose) 1 each IV PKCONSULT REBECA PRN Reason: Protocol Review of Systems ROS unobtainable: due to endotracheal tube, due to mental status Exam - Vital Signs Vital signs: Vital Signs Pulse Resp 67 12 02/21/17 15:58 02/21/17 15:58 - General Appearance General appearance: well-developed, appears stated age, sedated on ventilator, intubated (FiO2 40%) EENT: ATNC Neck: Present: neck supple Respiratory: Other (coarse breath sounds) Heart: regular, S1S2, no murmurs Gastrointestinal: Present: normoactive bowel sounds Integumentary: no rash, warm and dry Neurologic: other (sedated) Musculoskeletal: Present: other (no edema) Results - Lab Results 02/22/17 05:40 02/22/17 05:40 Most recent lab results Calcium 7.2 mg/dL (8.4-10.2) L D 02/22/17 05:40 Magnesium 2.9 mg/dL (1.7-2.3) H 02/21/17 16:30 Assessment and Plan - Patient Problems (1) Acute kidney injury Current Visit: Yes Status: Acute Plan to address problem: Acute kidney Injury is hemodynamically mediated in the setting of septic shock. Continue bicarbonate drip. Renal prognosis is guarded. Renal US. (2) Hyperkalemia Current Visit: Yes Status: Acute Plan to address problem: Improved. (3) Septic shock Current Visit: Yes Status: Acute Plan to address problem: On Levophed. (4) Lactic acidosis Current Visit: Yes Status: Acute Plan to address problem: Secondary to hypotension / septic shock. On bicarbonate drip. (5) Anemia Current Visit: Yes Status: Acute Qualifiers: Anemia type: A Iron deficiency anemia type: I Vitamin B12 deficiency anemia type: V Folate deficiency anemia type: F Bone marrow failure anemia type: B Hemolytic anemia type: H Other causes of anemia: O Plan to address problem: S/p PRBC. (6) Altered mental status Current Visit: Yes Status: Acute Qualifiers: Altered mental status type: A Coma depth: C Coma timing: C (7) Elevated transaminase level Current Visit: Yes Status: Acute (8) Liver metastases Current Visit: Yes Status: Chronic
--- NOTE | 2017-02-22 15:02 | Event Note ---
Date: 02/22/17 Chart Reviewed, patient is admitted with Lactic Acidosis, Septic Shock, PNA. She also has a diagnosis of ovarian Ca with metastasis to the liver with encephalopathy, currently intubated. She was found to be profoundly anemic with elevated LFTS. We were consulted based on elevated LFTS. At this time, would recommend FFP and following INR. Patient appears to be in liver failure. Ultimately she would need liver transplant, of which she is not a candidate for with metastasis/ septic shock, MOF, etc. Prognosis would be poor given this situation and there are no further recommendations from a GI standpoint. This was discussed with Dr. Paulina Weber/ and Dr. Salinas. Ratna Wynne, [facility]
--- NOTE | 2017-02-22 15:07 | Consultation ---
CONSULTING PHYSICIAN: Jennifer Long MD, Emergency Room physician. REASON FOR CONSULTATION: Severe sepsis, acute respiratory failure. CHIEF COMPLAINT AND HISTORY OF PRESENT ILLNESS: The patient is a 51-year-old -[place] female with past medical history mostly significant for metastatic ovarian cancer to her liver, who was brought in apparently by her son with altered mental status and respiratory distress. Her son stated that she was normal and had physical therapy the day before presentation. She does have a history of poor appetite. He did not see her earlier that day. He got about 3 p.m. She was not feeling well. She was responsive. EMS, when they were called reported, she was in respiratory distress and in the ER room, she had agonal respirations, she was minimally responsive, she was intubated, she was septic. She required volume and pressor resuscitation. Reportedly, she had just been discontinued from chemotherapy because she was not responding to treatment. She was admitted to the Intensive Care Unit where I stopped by to see her. When I stopped by to see her, she was minimally responsive, lethargic definitely. She was not on any sedation at that time. I do not have any history of emesis or overt aspiration. There is no history of seizures. No history of bleeding. This really is as much of the history of presentation as I have. PAST MEDICAL HISTORY: Again, significant amongst other things for a diagnosis of ovarian cancer that metastatic and she is obese. Other past medical history unknown. PAST SURGICAL HISTORY: She has had a hysterectomy. She has had a liver biopsy. MEDICATIONS: She was on at the time I stopped by to see her, according to the medication administration record, included the following: She was on Dulcolax p.r.n. She was on D5W with 3 amps of bicarbonate drip at 50 mL per hour. She was on normal saline at 125 mL per hour. She was on insulin via sliding scale, p.r.n. milk of magnesia, morphine sulfate 2 mg IV q.4h. p.r.n. moderate pain, Levophed drip was going at 30 mcg per minute, Protonix 40 mg IV daily, Zosyn 2.25 grams IV q.6h., Vancomycin she received 1.5 grams and scheduled 1.5 gram IV daily. ALLERGIES: No known drug allergies. DIET: Obese lady, she has lost some weight in the preceding few weeks to months. FAMILY AND SOCIAL HISTORY: Apparently lives in the community. Her son is by her side. Alcohol, tobacco, illicit drug use or abuse history unknown at this time. According to her son, she is a never smoker. REVIEW OF SYSTEMS: Unobtainable secondary to the patient's medical and mental condition. She is partially responsive. She nodes her head no to pain, but she had just received a shot of morphine sulfate since she has been here, no gross hematochezia or melena has been reported, no gross hematuria. No hematemesis. No bloody tracheal secretions. No reported seizures. PHYSICAL EXAMINATION: VITAL SIGNS: At presentation in the Emergency Room, she was hypothermic, temperature 95.4 Fahrenheit rectally with a pulse of 76, respiratory rate of 18, blood pressure of 87/30. Oxygen sats 99%, inspired oxygen concentration was not recorded. HEAD, EYES, EARS, NOSE, AND THROAT: Pupils are equal, round, about 3-4 mm, reactive to light. She has some scleral icterus. Extraocular muscle movements appear intact. Grossly, there were no palpable lymph nodes in the supraclavicular or submandibular lymph node chains. Endotracheal tube was in place, taped at the lips around 23-24 cm. LUNGS: Auscultation of both lung patel reveal bilateral rales and reduce right lower lobe air entry. No wheezing. HEART: Heart sounds 1 and 2 are heard, regular rate and rhythm at the time of my evaluation. ABDOMEN: Soft, full, bowel sounds are positive, nontender. EXTREMITIES: Without overt digital clubbing, cyanosis, or pedal edema. NEUROLOGIC: The exam was grossly nonfocal, although she was lethargic. LABORATORY DATA: From my review are as follows: Admission white cell count 36,600 with a hemoglobin of 4.3, hematocrit of 15.2, and platelet count of 105. INR was 8.31 at presentation. Arterial blood gas at presentation showed a pH of 7.05, pCO2 of 25, pO2 of 140 that was on 50% FiO2. Most recent gas pH 7.21, pCO2 of 23, pO2 was 83. She was on assist control, tidal volumes 500, PEEP of 5, rate of 20. She was breathing about 29-30 times a minute. Serum sodium on presentation 133, potassium 5.5, chloride 91, bicarbonate 7, BUN was , creatinine was 2.1, and glucose was 264. Lactic acid level was elevated at 18.4. It is up to 18.8 this morning. Total bilirubin was 4.6, AST 561, ALT 179, ammonia 134. Troponin was within normal limits. Albumin low at 1.7. Urinalysis was negative for nitrites and leukocyte esterase. MICROBIOLOGY STUDIES: No growth to date. Radiographic studies have been reviewed. I have also reviewed the radiologist's interpretation. Admission chest x-ray, endotracheal tube tip is at the level of the clavicular heads. She has a right subclavian Port-A-Cath in place. Right pleural effusion is evident. Cardiovascular silhouette appears to be within normal limits. Repeated x-ray this morning, increasing volume overload pattern and persistent right pleural effusion, essentially feeding tube is seen coursing through the mediastinum into the stomach. ASSESSMENT AND PLAN: We have a middle-aged lady in with severe sepsis and quite frankly the prognosis is really guarded at this time. From a respiratory standpoint, I will increase the set minute ventilation hypoventilatory trail and compensate for the metabolic acidosis and get her some rest. Aspiration precautions will be maintained. Bronchodilators and pulmonary toilet will be instituted and we will see how she does by, I hope we do not get into a situation of significant volume overload to complicate the picture. We will correct her coagulopathy at this time and once that is little better, attention will be given to performing a thoracentesis on her. A venous thromboembolic phenomenon is low on my differential especially with INR of 11 that she comes in. From a cardiovascular standpoint, we will first of all continue to work on the acidosis to improve her myocardial contractility. She will be continued on Levophed drip at this point. Second vasopressor agent will be instituted if mean arterial pressures remain below 60 mmHg. Cardiac enzymes thankfully appear unremarkable at presentation. Cardiology evaluation will be at the behest of the attending physician. We will follow her clinically for at this point otherwise. From a GI and nutritional standpoint, she will be started on lactulose for the hyperammonemia. Enteral nutrition will be the feeding modality of choice. Aspiration precautions will be maintained. The derangements are probably a combination of the metastatic disease to the liver as well as an element of shock liver. GI evaluation will be of benefit. From infectious disease standpoint, we will continue current broad spectrum anti-infective therapies. Infectious Disease consultation will also be requested. In the meantime, we will follow her clinically. I will get a CRP level. We will continue to trend the lactic acid level, which may simply be a manifestation of inadequate tissue perfusion or really related to the sepsis otherwise. Anti-infectives will ultimately be deescalated based on results of clinical and microbiologic data. From a gastrointestinal standpoint, I should mention that she will be receiving FFPs to correct the coagulopathy. I will give her at least 4 units at this some, start on vitamin K, and defer to GI. From a CLIENT RESOLUTION SPECIALIST standpoint, the exam is grossly nonfocal. Once she is more stable, we will probably get a CT of her brain. To rule out a bleed, but clinical picture is not in keeping with that at this point. Neurology evaluation probably will be requested if deemed necessary. She will be followed clinically at this point. From a renal standpoint, I will increase the D5 with bicarbonate drip to 150 mL per hour and stop the normal saline drip at this time. Electrolytes will be followed and corrected as necessary. Nephrology evaluation will be of benefit also. From a general and hospital healthcare maintenance standpoint, she is on DVT prophylaxis, although that is probably not needed with INR at this point. She is on GI prophylaxis. Flu and pneumonia vaccination will be per protocol. Thank you very much for the consult Dr. Mccurdy. We will follow along. We will make further recommendations as picture progresses/becomes clearer. She is critically ill on life-sustaining interventions including mechanical ventilatory support and vasopressor and at very high risk for further deterioration including . At this point, I have spent about 35-40 minutes of critical care time without overlap excluding any procedural time that may be necessary. JOB# [id number] KELLY/JEFF
[2017-02-22 16:03] LABS: INR 8.44 (0.87-1.13)
[2017-02-22] MEDS ORDERED: NACL 0.9% 500 ML 500 ML IV NR (17:06)
[2017-02-22 18:55] LABS: Bilirubin,Urine NEG (Negative); Blood,Urine MOD (Negative); Ketones,Urine NEG (Negative); Leukocyte Esterase,Urine TR (Negative); Mucus,Urine FEW /HPF; Nitrite,Urine NEG (Negative)
[2017-02-22] MEDS ORDERED: VANCOMYCIN 1,500 MG in NACL 0.9% 500 ML 500 ML IV SCH (19:00)
[2017-02-22] MEDS ORDERED: PITRESSin 20 UNIT in NACL 0.9% 100 ML IV SCH (20:00)
--- NOTE | 2017-02-22 20:09 | Consultation ---
History of Present Illness - Reason for Consult Consult date: 02/22/17 sepsis Requesting physician: RORY CHAU - History of Present Illness 51-year-old female with a past medical history end-stage metastatic ovarian cancer presents to the hospital with complaints of altered mental status and respiratory distress. Patient lives at home with her son. Son states that yesterday patient was normal and had physical therapy. Chronic poor appetite reported. Son did not see his mother this morning but saw her when he returned home at 3 PM. She appeared not feeling well but was responsive. EMS reported difficulty breathing and accucheck in the 50s. No IV access prior to arrival. Upon arrival patient was having agonal respirations and minimally responsive and she was promptly intubated. Son states that the patient is full code. Patient is currently intubated and unresponsive. Family at bedside. Had a long discussion with the family regarding her critical condition they want everything done. She has multiple lab abnormalities, she is hypothermic, hypotensive , severely anemic and in septic shock hence infectious disease consult. I saw patient at bedside. She is unable to provide history. Past History Past Medical History: other (metastatic ovarian cancer with metastasis to the liver) PHYSICAL EXAM VS - Hypothermia. Temp 94 chest - b/l rhonchi cvs - s1s2 abd - bs + Labs. Reviewed. See lab section ASSESSMENT 1. Sepsis 2. pneumonia 3. metastatic ovarian cancer RECOMMENDATION 1. Add fluconzole. 2. cbc/bmp in am 3. Poor prognosis Past History Past Medical History: cancer, other (metastatic ovarian cancer with metastasis to the liver) Past Surgical History: hysterectomy, Other (liver biopsy) Social history: no significant social history Family history: diabetes. denies: cancer, hypertension Medications and Allergies Allergies Allergy/AdvReac Type Severity Reaction Status Date / Time No Known Allergies Allergy Unverified 02/21/17 17:14 Active Meds: Active Medications Al Hydrox/Mg Hydrox/Simethicone (Alum-Mag Hydrox-Simeth [id number]/5ml) 30 ml PO Q4H PRN PRN Reason: Indigestion Albuterol/Ipratropium (Duoneb 0.5 Mg-3 Mg/3 Ml Soln) 1 ampul IH TIDRT [facility] Last Admin: 02/22/17 19:31 Dose: 1 ampul Lipase/Protease/Amylase (Dhara Flores 10,500 Unit) 1 each FEEDTUBE PRN PRN PRN Reason: For Clogged Feeding Tube Bisacodyl (Dulcolax) 10 mg IN QDAY PRN PRN Reason: constipation unrelieved by MOM Dextrose (D50w (25gm)) 50 ml IV PRN PRN PRN Reason: Hypoglycemia Last Admin: 02/22/17 10:27 Dose: 50 ml Hydrophilic Ointment (Vaseline Lip Therapy) 1 applic TP Q2HR PRN PRN Reason: Dry Lips Vancomycin HCl 1,500 mg/ (Sodium Chloride) 530 mls @ 333.333 mls/hr IV Q24H REBECA Last Admin: 02/22/17 19:00 Dose: 333.333 mls/hr Piperacillin Sod/Tazobactam Sod (Zosyn/Ns 2.25 Gm/50ml) 2.25 gm in 50 mls @ 100 mls/hr IV Q6H REBECA Last Admin: 02/22/17 14:22 Dose: 100 mls/hr Sodium Chloride (Nacl 0.9% 1000 Ml) 1,000 mls @ 125 mls/hr IV DIRECT REBECA Norepinephrine 8 mg/ Sodium (Chloride) 250 mls @ 3.75 mls/hr IV TITR REBECA; 2 MCG /MIN PRN Reason: Protocol Last Admin: 02/22/17 17:35 Dose: 30 mcg/min, 56.25 mls/hr Sodium Bicarbonate 150 meq/ (Dextrose) 1,150 mls @ 150 mls/hr IV DIRECT REBECA Last Admin: 02/22/17 17:35 Dose: 150 mls/hr Fentanyl Citrate (Fentanyl Drip Premix) 2,000 mcg in 100 mls @ 4.604 mls/hr IV TITR REBECA; 1 MCG/KG/HR PRN Reason: Protocol Last Titration: 02/22/17 17:35 Dose: 2 mcg/kg/hr, 9.208 mls/hr Sodium Chloride (Nacl 0.9% 500 Ml) 500 mls @ 0 mls/hr IV ONCE NR PRN Reason: As Directed Stop: 02/22/17 23:59 Dopamine HCl/Dextrose (Intropin Drip 800 Mg/D5w 250 Ml) 800 mg in 250 mls @ 8.63 mls/hr IV TITR REBECA; 5 MCG/KG/MIN PRN Reason: Protocol Vasopressin 20 unit/ Sodium (Chloride) 101 mls @ 9.09 mls/hr IV TITR REBECA; 0.03 UNITS/MIN PRN Reason: Protocol Insulin Aspart (Novolog) 0 units SUB-Q Q6HR REBECA PRN Reason: Protocol Last Admin: 02/22/17 17:50 Dose: Not Given Lactulose (Cephulac) 20 gm PO Q6H REBECA Last Admin: 02/22/17 17:52 Dose: 20 gm Magnesium Hydroxide (Milk Of Magnesia) 30 ml PO Q4H PRN PRN Reason: Constipation Morphine Sulfate (Morphine) 2 mg IV Q4H PRN PRN Reason: Pain, Moderate (4-6) Last Admin: 02/22/17 10:34 Dose: 2 mg Multi-Ingred Cream/Lotion/Oil/Oint (Artificial Tears Ophth Oint) 1 applic OU Q4HR PRN PRN Reason: Dry Eye(s) Pantoprazole Sodium (Protonix) 40 mg IV BID REBECA Phytonadione (Vitamin K (Adult Only)) 10 mg SUB-Q Q8H REBECA Stop: 02/24/17 04:01 Last Admin: 02/22/17 12:23 Dose: 10 mg Simple Syrup (Simple Syrup) 15 ml FEEDTUBE PRN PRN PRN Reason: Hypoglycemia Simple Syrup (Simple Syrup) 30 ml FEEDTUBE PRN PRN PRN Reason: Hypoglycemia Sodium Bicarbonate (Sodium Bicarbonate) 325 mg FEEDTUBE PRN PRN PRN Reason: For Clogged Feeding Tube Sodium Chloride (Nacl 0.9% 500 Ml) 1 ml IV DIRECT REBECA Vancomycin HCl (Vancomycin Pharmacy To Dose) 1 each IV PKCONSULT REBECA PRN Reason: Protocol Physical Examination - Constitutional Vitals: Vital Signs Temp Pulse Resp BP Pulse Ox 99.1 F 95 H 2 L 98/34 100 02/22/17 19:22 02/22/17 19:31 02/22/17 19:31 02/22/17 19:31 02/22/17 19:31 Temperature -Last 24 Hours Temperature 99.1 F Temperature 93.9 F Temperature 99.1 F Temperature 97.8 F Temperature 97.8 F Temperature 97.8 F Temperature 97.4 F Temperature 97.4 F Temperature 97.4 F Temperature 97.3 F Temperature 97.5 F Temperature 97.4 F Temperature 97.5 F Temperature 98.2 F Temperature 97.6 F Temperature 97.6 F Temperature 97.7 F Temperature 97.6 F Temperature 97.5 F Temperature 97.8 F Temperature 97.5 F Temperature 97.2 F Results - Labs CBC & Chem 7: 02/22/17 05:40 02/22/17 05:40 Labs: Abnormal lab results 02/22/17 02/22/17 02/22/17 Range/Units 00:20 00:25 03:51 WBC (4.5-11.0) K/mm3 RBC (3.65-5.03) M/mm3 Hgb (10.1-14.3) gm/dl Hct (30.3-42.9) % MCH (28-32) pg RDW (13.2-15.2) % Plt Count (140-440) K/mm3 Seg Neuts % (Manual) (40.0-70.0) % Lymphocytes % (Manual) (13.4-35.0) % Nucleated RBC % (0.0-0.9) % Seg Neutrophils # Man (1.8-7.7) K/mm3 Monocytes # (Manual) (0.0-0.8) K/mm3 PT (12.2-14.9) Sec. INR (0.87-1.13) APTT (24.2-36.6) Sec. POC ABG pH 7.060 L 7.113 L (7.35-7.45) POC ABG pCO2 22.6 L 24.5 L (35-45) POC ABG pO2 113 H (80-105) Carbon Dioxide (22-30) mmol/L BUN (7-17) mg/dL Creatinine (0.7-1.2) mg/dL Glucose (65-100) mg/dL POC Glucose < 40 L (70-105) Lactic Acid (0.7-2.0) mmol/L Calcium (8.4-10.2) mg/dL Total Bilirubin (0.1-1.2) mg/dL AST (5-40) units/L ALT (7-56) units/L Alkaline Phosphatase (35-129) units/L Ammonia (25-60) umol/L C-Reactive Protein (0.00-1.30) mg/dL Total Protein (6.3-8.2) g/dL Albumin (3.9-5) g/dL Urine WBC (Auto) (0.0-6.0) /HPF Urine Creatinine (0.1-20.0) mg/dL 02/22/17 02/22/17 02/22/17 Range/Units 05:40 05:40 05:40 WBC 25.7 H (4.5-11.0) K/mm3 RBC 3.01 L (3.65-5.03) M/mm3 Hgb 8.0 L D (10.1-14.3) gm/dl Hct 26.5 L D (30.3-42.9) % MCH 27 L (28-32) pg RDW 22.2 H (13.2-15.2) % Plt Count 79 L (140-440) K/mm3 Seg Neuts % (Manual) 37.0 L (40.0-70.0) % Lymphocytes % (Manual) 9.0 L (13.4-35.0) % Nucleated RBC % 19.0 H (0.0-0.9) % Seg Neutrophils # Man 9.5 H (1.8-7.7) K/mm3 Monocytes # (Manual) 1.0 H (0.0-0.8) K/mm3 PT (12.2-14.9) Sec. INR (0.87-1.13) APTT (24.2-36.6) Sec. POC ABG pH (7.35-7.45) POC ABG pCO2 (35-45) POC ABG pO2 (80-105) Carbon Dioxide 9 L* (22-30) mmol/L BUN 62 H (7-17) mg/dL Creatinine 2.3 H (0.7-1.2) mg/dL Glucose 42 L (65-100) mg/dL POC Glucose (70-105) Lactic Acid (0.7-2.0) mmol/L Calcium 7.2 L D (8.4-10.2) mg/dL Total Bilirubin 5.4 H (0.1-1.2) mg/dL AST 3388 H (5-40) units/L ALT 676 H (7-56) units/L Alkaline Phosphatase 530 H (35-129) units/L Ammonia 107.0 H (25-60) umol/L C-Reactive Protein (0.00-1.30) mg/dL Total Protein 6.0 L (6.3-8.2) g/dL Albumin 1.9 L (3.9-5) g/dL Urine WBC (Auto) (0.0-6.0) /HPF Urine Creatinine (0.1-20.0) mg/dL 02/22/17 02/22/17 02/22/17 Range/Units 05:40 05:40 06:13 WBC (4.5-11.0) K/mm3 RBC (3.65-5.03) M/mm3 Hgb (10.1-14.3) gm/dl Hct (30.3-42.9) % MCH (28-32) pg RDW (13.2-15.2) % Plt Count (140-440) K/mm3 Seg Neuts % (Manual) (40.0-70.0) % Lymphocytes % (Manual) (13.4-35.0) % Nucleated RBC % (0.0-0.9) % Seg Neutrophils # Man (1.8-7.7) K/mm3 Monocytes # (Manual) (0.0-0.8) K/mm3 PT 89.6 H (12.2-14.9) Sec. INR 11.28 H* (0.87-1.13) APTT 49.7 H (24.2-36.6) Sec. POC ABG pH 7.210 L (7.35-7.45) POC ABG pCO2 23.0 L (35-45) POC ABG pO2 (80-105) Carbon Dioxide (22-30) mmol/L BUN (7-17) mg/dL Creatinine (0.7-1.2) mg/dL Glucose (65-100) mg/dL POC Glucose (70-105) Lactic Acid (0.7-2.0) mmol/L Calcium (8.4-10.2) mg/dL Total Bilirubin (0.1-1.2) mg/dL AST (5-40) units/L ALT (7-56) units/L Alkaline Phosphatase (35-129) units/L Ammonia (25-60) umol/L C-Reactive Protein 22.60 H (0.00-1.30) mg/dL Total Protein (6.3-8.2) g/dL Albumin (3.9-5) g/dL Urine WBC (Auto) (0.0-6.0) /HPF Urine Creatinine (0.1-20.0) mg/dL 02/22/17 02/22/17 02/22/17 Range/Units 09:25 10:11 11:07 WBC (4.5-11.0) K/mm3 RBC (3.65-5.03) M/mm3 Hgb (10.1-14.3) gm/dl Hct (30.3-42.9) % MCH (28-32) pg RDW (13.2-15.2) % Plt Count (140-440) K/mm3 Seg Neuts % (Manual) (40.0-70.0) % Lymphocytes % (Manual) (13.4-35.0) % Nucleated RBC % (0.0-0.9) % Seg Neutrophils # Man (1.8-7.7) K/mm3 Monocytes # (Manual) (0.0-0.8) K/mm3 PT (12.2-14.9) Sec. INR (0.87-1.13) APTT (24.2-36.6) Sec. POC ABG pH (7.35-7.45) POC ABG pCO2 (35-45) POC ABG pO2 (80-105) Carbon Dioxide (22-30) mmol/L BUN (7-17) mg/dL Creatinine (0.7-1.2) mg/dL Glucose (65-100) mg/dL POC Glucose 60 L 125 H (70-105) Lactic Acid 18.8 H* (0.7-2.0) mmol/L Calcium (8.4-10.2) mg/dL Total Bilirubin (0.1-1.2) mg/dL AST (5-40) units/L ALT (7-56) units/L Alkaline Phosphatase (35-129) units/L Ammonia (25-60) umol/L C-Reactive Protein (0.00-1.30) mg/dL Total Protein (6.3-8.2) g/dL Albumin (3.9-5) g/dL Urine WBC (Auto) (0.0-6.0) /HPF Urine Creatinine (0.1-20.0) mg/dL 02/22/17 02/22/17 02/22/17 Range/Units 11:52 14:43 18:30 WBC (4.5-11.0) K/mm3 RBC (3.65-5.03) M/mm3 Hgb (10.1-14.3) gm/dl Hct (30.3-42.9) % MCH (28-32) pg RDW (13.2-15.2) % Plt Count (140-440) K/mm3 Seg Neuts % (Manual) (40.0-70.0) % Lymphocytes % (Manual) (13.4-35.0) % Nucleated RBC % (0.0-0.9) % Seg Neutrophils # Man (1.8-7.7) K/mm3 Monocytes # (Manual) (0.0-0.8) K/mm3 PT 71.2 H (12.2-14.9) Sec. INR 8.44 H* (0.87-1.13) APTT (24.2-36.6) Sec. POC ABG pH (7.35-7.45) POC ABG pCO2 (35-45) POC ABG pO2 (80-105) Carbon Dioxide (22-30) mmol/L BUN (7-17) mg/dL Creatinine (0.7-1.2) mg/dL Glucose (65-100) mg/dL POC Glucose 130 H (70-105) Lactic Acid (0.7-2.0) mmol/L Calcium (8.4-10.2) mg/dL Total Bilirubin (0.1-1.2) mg/dL AST (5-40) units/L ALT (7-56) units/L Alkaline Phosphatase (35-129) units/L Ammonia (25-60) umol/L C-Reactive Protein (0.00-1.30) mg/dL Total Protein (6.3-8.2) g/dL Albumin (3.9-5) g/dL Urine WBC (Auto) 15.0 H (0.0-6.0) /HPF Urine Creatinine (0.1-20.0) mg/dL 02/22/17 02/22/17 Range/Units 18:30 18:30 WBC (4.5-11.0) K/mm3 RBC (3.65-5.03) M/mm3 Hgb (10.1-14.3) gm/dl Hct (30.3-42.9) % MCH (28-32) pg RDW (13.2-15.2) % Plt Count (140-440) K/mm3 Seg Neuts % (Manual) (40.0-70.0) % Lymphocytes % (Manual) (13.4-35.0) % Nucleated RBC % (0.0-0.9) % Seg Neutrophils # Man (1.8-7.7) K/mm3 Monocytes # (Manual) (0.0-0.8) K/mm3 PT (12.2-14.9) Sec. INR (0.87-1.13) APTT (24.2-36.6) Sec. POC ABG pH (7.35-7.45) POC ABG pCO2 (35-45) POC ABG pO2 (80-105) Carbon Dioxide (22-30) mmol/L BUN (7-17) mg/dL Creatinine (0.7-1.2) mg/dL Glucose (65-100) mg/dL POC Glucose (70-105) Lactic Acid 20.4 H* (0.7-2.0) mmol/L Calcium (8.4-10.2) mg/dL Total Bilirubin (0.1-1.2) mg/dL AST (5-40) units/L ALT (7-56) units/L Alkaline Phosphatase (35-129) units/L Ammonia (25-60) umol/L C-Reactive Protein (0.00-1.30) mg/dL Total Protein (6.3-8.2) g/dL Albumin (3.9-5) g/dL Urine WBC (Auto) (0.0-6.0) /HPF Urine Creatinine 105.3 H (0.1-20.0) mg/dL
[2017-02-22] MEDS: INTROPIN DRIP 800 MG/D5W 250 ML 800 MG/250 ML BAG IV SCH (20:14)
[2017-02-22] MEDS ORDERED: SODIUM BICARBONATE 150 MEQ in D5W 1,000 ML IV SCH (23:00)
[2017-02-22 23:03] LABS: Mean Corpuscular HGB Conc 28 % (30-34); Mean Corpuscular Hemoglobin 27 pg (28-32); Mean Corpuscular Volume 94 fl (79-97); Red Blood Count 2.29 M/mm3 (3.65-5.03)
[2017-02-22 23:05] LABS: Hemoglobin 6.1 gm/dl (10.1-14.3)
[2017-02-22 23:06] LABS: Hematocrit 21.6 % (30.3-42.9); Platelet Count 58 K/mm3 (140-440); Red Cell Distribution Width 23.1 % (13.2-15.2)
[2017-02-22 23:13] LABS: BUN/Creatinine Ratio 21.03; Calcium 7.3 mg/dL (8.4-10.2); Chloride 95.8 mmol/L (98-107); Magnesium 2.6 mg/dL (1.7-2.3); Potassium 4.9 mmol/L (3.6-5.0)
[2017-02-22 23:50] LABS: Chloride 95.5 mmol/L (98-107)
--- NOTE | 2017-02-22 23:55 | Event Note ---
Date: 02/22/17 DEVORA TADEO called Initial rhythm, PEA ACLS protocol was initiated, please refer to the code sheet for details There was ROSC spouse at bedside , code status discussed
[2017-02-23 00:09] LABS: White Blood Count 24.1 K/mm3 (4.5-11.0)
[2017-02-23 00:12] LABS: Albumin 2.2 g/dL (3.9-5); Albumin/Globulin Ratio 0.6 %; BUN/Creatinine Ratio 21.07; Bilirubin,Total 5.2 mg/dL (0.1-1.2); Calcium 7.2 mg/dL (8.4-10.2); Total Protein 5.7 g/dL (6.3-8.2)
[2017-02-23 00:15] LABS: Anisocytosis 2+; Basophils % (Manual) 0 % (0.0-1.8); Blastocytes % (Manual) 0 %; Burr Cells 1+; Hypochromasia 2+; Polychromasia Few; Stomatocytes Few
[2017-02-23 00:16] LABS: Diff Status Complete; Elliptocytes Few; Large Platelets Few; Platelet Estimate Consistent w Auto
[2017-02-23] MEDS ORDERED: NACL 0.9% 500 ML 500 ML IV ONE (00:26)
[2017-02-23] MEDS ORDERED: SODIUM BICARBONATE IV ONE ×6 (00:30→14:37)
[2017-02-23 00:43] LABS: ISTAT Base Excess -27; ISTAT HCO3 5.8; ISTAT PCO2 28.8 (35-45); ISTAT PH 6.909 (7.35-7.45); ISTAT PO2 39 (80-105); ISTAT SO2 43; ISTAT TCO2 7
--- NOTE | 2017-02-23 02:32 | Consultation ---
REASON FOR CONSULT: Ovarian cancer, coagulopathy. ASSESSMENT: 1. 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 2. Coagulopathy, multifactorial, including Xarelto anticoagulation therapy, liver disease due to metastatic cancer, DIC, sepsis/acute renal failure associated coagulopathy. 3. Anemia secondary to blood loss, malignancy, and prior chemotherapy, renal insufficiency. 4. Thrombocytopenia, multifactorial including acute illness, sepsis, acute renal insufficiency, ?DIC. 5. History of provoked pulmonary embolism, prior to admission has been on anticoagulation therapy/Xarelto. 6. Shock status. 7. Sepsis. 8. Acute kidney injury. 9. Anuria. 10. Jaundice. 11. Toxic metabolic encephalopathy. 12. Acute hypoxic respiratory failure. 13. Liver failure. 14. Hypothermia, the patient on warming blanket. 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 Treatment chemotherapy has been put on hold. Comfort measures only been recommended. Currently being admitted in a shock status, with multiorgan failure, prognosis is extremely poor, life expectancy is short; it is unlikely she would survive this most recent medical illness. Considering all of these comfort measures is appropriate. No heroic measures will be appropriate. Nonetheless, I had good discussion with the /son/and members of the family. They want everything to be done. They do not want to discontinue treatment or decreased aggressive management. Subsequently from Hematology/Oncology point of view, considering her current status and coagulopathy, she already received fresh frozen plasma, vitamin K, she did show appropriate response. Nonetheless, her PT/INR continued to be high though it has improved. Subsequently, additional transfusion of 4 units of fresh frozen plasma will be in order. She probably have a GI to recheck PT, INR, PTT, and fibrinogen, and D-dimer. She has been on Xarelto, which obviously could increase her PT/INR. Nonetheless usually, in healthy person, this medicine would be out of the body nonetheless considering her kidney function, her clearance would be compromised; subsequently, we will have to continue supportive treatment for the present time. Fortunately, at this moment, she is not bleeding. Her hemoglobin and hematocrit to be monitored, she could be transfused as needed for hemoglobin below 7, hematocrit below 23 unless she needs higher hemoglobin and hematocrit for other reasons. Her thrombocytopenia was mostly secondary to consumption, acute illness, and ?DIC. This is to be monitored. At this moment, with the current platelets values, there is no indication for platelet transfusion. If she bleeds, we need to have platelets around 50,000 or above. HISTORY OF PRESENT ILLNESS: The patient is a 51-year-old -[place] female, was initially diagnosed in 11/2015 when she had total abdominal hysterectomy/bilateral salpingooophorectomy with omentectomy any found to have stage III ovarian cancer, papillary serous type. She received initially adjuvant carboplatin/Taxol for six cycles. Following treatment, she was noted to have liver metastasis, which was biopsied and resected. She then received Doxil and Avastin for four cycles and on the restaging, there was evidence of disease progression in the liver. She was started on letrozole, but clinically worsening, with anemia, pleural effusion, hospice advised, but she did not want to do this. Subsequently, she did the second opinion from Dr. Hilda Weber on 02/14/2017, who advised the same. Also, he discussed with her the end of life and DNR status. The patient according to the records that she does not want to be placed on the machine, but she has not made an official DNR status. It was noted currently, the patient on machine and family wants everything to be done. Currently, she has been admitted. She was found by her son, who noted her not responsive as she should. EMT being called, noted to have stopping difficulty of bleeding, Acute check was 150, noted in between evaluation and transportation to have agonal respiration and minimally responsive, she was promptly intubated. Son told that the medical personal that she is a full code. Also, she was noted to be hypoglycemic. She was given appropriate therapy. Additional evaluation and management, she was noted to have multiple comorbidities at this moment including septic shock, acute kidney injury. The patient not passing urine, metabolic encephalopathy, acute hypoxemic respiratory failure, anemia, liver failure, coagulopathy, protein-calorie malnutrition. She was severely anemic with hemoglobin 4.3, hematocrit 12.5, MCV 24, MCH 29, RDW 29.3, platelets 105,000, white count 36,000, 86 segs, and 6% bands. Also, she has significant coagulopathy, her PT was up to 89. At one point, INR 11.28. She was transfused, given fresh frozen plasma, and followup PT/INR, did show PT down to 71, INR 8.44. Initially, she did have bleeding from the port site. Also, she has IV through the tibial bone. She was bleeding thought it and now, this was stopped. The patient currently on mechanical ventilation. She is 100% unresponsive. She has agonal breathing. PAST MEDICAL HISTORY: 1. From prior records, stage IV ovarian cancer. 2. Liver metastases post-biopsy. 3. Anemia. 4. Pulmonary embolism, provoked. 5. Chronic anticoagulation therapy. 6. Status post total abdominal hysterectomy, bilateral salpingo-oophorectomy with omentectomy. ALLERGIES: MORPHINE. FAMILY HISTORY: Positive for diabetes, hypertension. SOCIAL HISTORY: She is . She is nonsmoker. Nondrinker. MEDICATIONS: 1. Nebulizer treatment, Amidate. 2. Fentanyl citrate. 3. Dilaudid. 4. NovoLog. 5. Levaquin. 6. Magnesium hydroxide. 7. Artificial tears. 8. Levophed. 9. Norepinephrine. 10. Protonix. 11. Zosyn. 12. IV fluids as needed. 13. Vancomycin(for details, please refer to hospital computer record). 14. At home, she has been on Xarelto. REVIEW OF SYSTEMS: Including general, skin, HEENT, endocrine, respiratory, cardiovascular, GI, , [employer] REPA[employer]ER, musculoskeletal, blood/lymphatics, mood affects, pertinent positive unobtainable from the patient, noted from records. Pertinent positive finding as noted above. Pertinent negative finding as noted above. No other pertinent not indicative finding. No other pertinent positive findings. PHYSICAL EXAMINATION: VITAL SIGNS: Temperature 93.9, blood pressure is 104/45, on vasopressors, pulse 90, the patient is on mechanical ventilation, but she agonal breathing between the periods. GENERAL: A 51 years old -[place] female, appears well-developed, well-nourished, completely unresponsive to any stimuli or mechanical ventilation. SKIN: No new bruises, no petechia. HEENT: Pale conjunctivae. Icteric sclerae. NECK: No adenopathy. CHEST: Moving in symmetrical fashion during inspiration and expiration. LUNGS: Equal breathing sounds bilaterally. Could not hear rales or wheezing. CARDIOVASCULAR: Heart regular rate and rhythm. No murmur. S3 increase in intensity. ABDOMEN: Soft, nontender, no palpable masses, palpable liver or spleen. Normal bowel sounds. No inguinal adenopathy. No history of tingling or numbness. EXTREMITIES: The patient unresponsive, could not detect any tenderness in both calves areas. No reflexes whatsoever. MUSCULOSKELETAL: No acute joint swelling. NEURO: Mood-affect could not be obtained at this moment. BLOOD-LYMPHATICS: At the time of evaluation, initially corrected by the nurse, she had bleeding from the IV site through the tibial bone and from port, this was stopped now. No new bruises. No nosebleed, no gum bleed. No hematuria and very little urine, only few drops in the bag. No adenopathy. No palpable liver or spleen. PT 70.3, repeat 89.6 following of fresh frozen plasma 71.2. INR 8.31, went up 11.28, and fresh frozen plasma 8.4. PTT 47. Admission hemoglobin 4.3, repeat post-transfusion 8.0, hematocrit 15.2, repeat post-transfusion 26.5. Platelet initially 105,000, repeat 79,000. Bilirubin 4.6, AST 561, ALT 179, CO2 initially was 7. BUN 71, creatinine 2.1, repeat 2.3. Chest x-ray: Endotracheal tube appears to be in satisfactory position. Large right pleural effusion, underlying airspace disease, can go undetected in the sitting. JOB# [id number] ASA/NTS MTDD
[2017-02-23] MEDS: D50W (25GM) IV PRN ×2 (02:55→11:15)
[2017-02-23] MEDS: INTROPIN DRIP 800 MG/D5W 250 ML 800 MG/250 ML BAG IV SCH ×2 (03:04→10:39)
[2017-02-23] MEDS: VITAMIN K (ADULT ONLY) SUB-Q SCH ×2 (04:26→11:39)
[2017-02-23] MEDS: CEPHULAC PO SCH ×3 (04:49→11:39)
[2017-02-23] MEDS: PROTONIX IV SCH ×2 (04:56→09:39)
[2017-02-23 05:20] LABS: ISTAT Base Excess < -30; ISTAT HCO3 3.4; ISTAT PCO2 20.8 (35-45); ISTAT PH 6.823 (7.35-7.45); ISTAT PO2 61 (80-105); ISTAT SO2 66; ISTAT TCO2 < 5
[2017-02-23] MEDS: NOVOLOG SUB-Q SCH ×3 (06:27→11:59)
[2017-02-23] MEDS: DUONEB 0.5 MG-3 MG/3 ML SOLN IH SCH ×3 (07:56→19:09)
--- NOTE | 2017-02-23 07:58 | Event Note ---
Date: 02/23/17 I was asked to respond to a CODE BLUE on this patient at about 7:05 AM. The patient was already intubated but due to no attending physician at bedside I went up to run the code and ACLS protocol. When I got to the room the nursing staff said that the patient had been in PEA but was currently checking with a pencil Doppler and said that the patient had a pulse. I confirmed this with auscultation to the chest hearing heart sounds. Patient had an organized rhythm. Patient had stable vitals that point. Systolic blood pressure in the 90s and did not require any central line catheter at this time. Patient has intubation and mechanical ventilation. The hospitalist will be contacted for postresuscitation orders and further evaluation.
[2017-02-23 08:13] LABS: Calcium 6.9 mg/dL (8.4-10.2); Chloride 93.9 mmol/L (98-107); Potassium 5.1 mmol/L (3.6-5.0)
[2017-02-23 08:15] LABS: Iron 225 ug/dL (37-170)
[2017-02-23 08:17] LABS: Hematocrit 23.2 % (30.3-42.9); Hemoglobin 6.8 gm/dl (10.1-14.3); Mean Corpuscular HGB Conc 29 % (30-34); Mean Corpuscular Hemoglobin 28 pg (28-32); Mean Corpuscular Volume 94 fl (79-97); Red Blood Count 2.46 M/mm3 (3.65-5.03); Red Cell Distribution Width 19.3 % (13.2-15.2); White Blood Count 20.1 K/mm3 (4.5-11.0)
[2017-02-23 08:29] LABS: Fibrinogen 164 mg/dl (211-480)
--- NOTE | 2017-02-23 08:41 | Progress Note ---
Assessment and Plan - Patient Problems (1) Acute kidney injury Current Visit: Yes Status: Acute Plan to address problem: Hemodynamically mediated Acute kidney Injury in the setting of septic shock. Renal function continue to decline in the setting of worsening hypotension. Continue bicarbonate drip. Renal prognosis is poor. Patient would not tolerate hemodialysis due to severe hypotension. (2) Hyperkalemia Current Visit: Yes Status: Acute Plan to address problem: Mild hyperkalemia noted. Monitor lytes. (3) Septic shock Current Visit: Yes Status: Acute Plan to address problem: Patient maxed out on 3 different pressors. (4) Lactic acidosis Current Visit: Yes Status: Acute (5) Acute hypoxemic respiratory failure Current Visit: Yes Status: Acute Plan to address problem: On vent. (6) Anemia Current Visit: Yes Status: Acute Qualifiers: Anemia type: A Iron deficiency anemia type: I Vitamin B12 deficiency anemia type: V Folate deficiency anemia type: F Bone marrow failure anemia type: B Hemolytic anemia type: H Other causes of anemia: O (7) Altered mental status Current Visit: Yes Status: Acute Qualifiers: Altered mental status type: A Coma depth: C Coma timing: C (8) Elevated transaminase level Current Visit: Yes Status: Acute (9) Liver metastases Current Visit: Yes Status: Chronic Subjective Date of service: 02/23/17 Interval history: Patient was coded (PEA arrest) twice overnight. Objective - Vital Signs Vital signs: Vital Signs - 12hr 02/22/17 02/22/17 02/22/17 20:43 20:45 20:59 Temperature 98.9 F Pulse Rate 98 H 100 H 102 H Pulse Rate [ Anterior Bilateral Throughout] Respiratory 23 28 H 20 Rate Respiratory Rate [Anterior Bilateral Throughout] Blood Pressure 91/37 88/34 84/38 O2 Sat by Pulse 100 100 100 Oximetry 02/22/17 02/22/17 02/22/17 21:00 21:15 21:30 Temperature Pulse Rate 101 H 103 H 103 H Pulse Rate [ Anterior Bilateral Throughout] Respiratory 26 H 27 H 30 H Rate Respiratory Rate [Anterior Bilateral Throughout] Blood Pressure 84/38 92/45 97/34 O2 Sat by Pulse 100 100 100 Oximetry 02/22/17 02/22/17 02/22/17 21:45 22:01 22:10 Temperature 98.8 F Pulse Rate 101 H 87 88 Pulse Rate [ Anterior Bilateral Throughout] Respiratory 25 H 13 12 Rate Respiratory Rate [Anterior Bilateral Throughout] Blood Pressure 87/39 58/23 88/34 O2 Sat by Pulse 100 100 Oximetry 02/22/17 02/22/17 02/22/17 22:15 22:31 22:45 Temperature Pulse Rate 57 L 36 L 104 H Pulse Rate [ Anterior Bilateral Throughout] Respiratory 30 H 30 H Rate Respiratory Rate [Anterior Bilateral Throughout] Blood Pressure 45/18 45/25 149/98 O2 Sat by Pulse 86 Oximetry 02/22/17 02/22/17 02/22/17 23:00 23:04 23:15 Temperature 99 F Pulse Rate 97 H 97 H 93 H Pulse Rate [ Anterior Bilateral Throughout] Respiratory 30 H 30 H Rate Respiratory Rate [Anterior Bilateral Throughout] Blood Pressure 96/37 96/37 88/36 O2 Sat by Pulse 100 100 100 Oximetry 02/22/17 02/22/17 02/22/17 23:30 23:45 23:49 Temperature 99.4 F Pulse Rate 91 H 89 Pulse Rate [ Anterior Bilateral Throughout] Respiratory 30 H 28 H Rate Respiratory Rate [Anterior Bilateral Throughout] Blood Pressure 78/32 89/30 O2 Sat by Pulse 99 100 Oximetry 02/23/17 02/23/17 02/23/17 00:01 00:15 00:30 Temperature Pulse Rate 90 89 90 Pulse Rate [ Anterior Bilateral Throughout] Respiratory 23 29 H 30 H Rate Respiratory Rate [Anterior Bilateral Throughout] Blood Pressure 89/30 111/74 92/38 O2 Sat by Pulse 100 100 Oximetry 02/23/17 02/23/17 02/23/17 00:45 01:01 01:15 Temperature Pulse Rate 94 H 93 H 91 H Pulse Rate [ Anterior Bilateral Throughout] Respiratory 26 H 30 H 31 H Rate Respiratory Rate [Anterior Bilateral Throughout] Blood Pressure 92/38 79/23 79/23 O2 Sat by Pulse 99 100 100 Oximetry 02/23/17 02/23/17 02/23/17 01:20 01:31 01:45 Temperature 99.6 F Pulse Rate 88 91 H 90 Pulse Rate [ Anterior Bilateral Throughout] Respiratory 30 H 30 H 29 H Rate Respiratory Rate [Anterior Bilateral Throughout] Blood Pressure 80/31 82/22 O2 Sat by Pulse 98 100 Oximetry 02/23/17 02/23/17 02/23/17 02:01 02:15 02:30 Temperature Pulse Rate 89 89 88 Pulse Rate [ Anterior Bilateral Throughout] Respiratory 30 H 30 H 30 H Rate Respiratory Rate [Anterior Bilateral Throughout] Blood Pressure 79/25 79/25 O2 Sat by Pulse 100 100 Oximetry 02/23/17 02/23/17 02/23/17 02:45 02:48 03:01 Temperature 99.2 F Pulse Rate 87 87 85 Pulse Rate [ Anterior Bilateral Throughout] Respiratory 30 H 30 H 30 H Rate Respiratory Rate [Anterior Bilateral Throughout] Blood Pressure 42/21 65/24 O2 Sat by Pulse 99 100 97 Oximetry 02/23/17 02/23/17 02/23/17 03:15 03:28 03:31 Temperature 98.6 F Pulse Rate 85 85 84 Pulse Rate [ Anterior Bilateral Throughout] Respiratory 29 H 30 H 30 H Rate Respiratory Rate [Anterior Bilateral Throughout] Blood Pressure 87/24 72/22 72/22 O2 Sat by Pulse 99 98 99 Oximetry 02/23/17 02/23/17 02/23/17 03:45 04:00 04:01 Temperature 98.4 F Pulse Rate 84 83 Pulse Rate [ Anterior Bilateral Throughout] Respiratory 30 H 30 H Rate Respiratory Rate [Anterior Bilateral Throughout] Blood Pressure 72/22 72/22 O2 Sat by Pulse 98 Oximetry 02/23/17 02/23/17 02/23/17 04:02 04:15 04:23 Temperature 98.4 F 97.4 F L Pulse Rate 83 83 83 Pulse Rate [ Anterior Bilateral Throughout] Respiratory 30 H 26 H 27 H Rate Respiratory Rate [Anterior Bilateral Throughout] Blood Pressure 72/22 O2 Sat by Pulse 99 99 99 Oximetry 02/23/17 02/23/17 02/23/17 04:31 04:44 04:45 Temperature Pulse Rate 82 83 82 Pulse Rate [ Anterior Bilateral Throughout] Respiratory 30 H 30 H Rate Respiratory Rate [Anterior Bilateral Throughout] Blood Pressure O2 Sat by Pulse 99 99 100 Oximetry 02/23/17 02/23/17 02/23/17 05:01 05:02 05:15 Temperature 98.2 F Pulse Rate 81 81 80 Pulse Rate [ Anterior Bilateral Throughout] Respiratory 30 H 30 H 31 H Rate Respiratory Rate [Anterior Bilateral Throughout] Blood Pressure 55/29 55/29 O2 Sat by Pulse 100 100 Oximetry 02/23/17 02/23/17 02/23/17 05:31 05:45 06:01 Temperature Pulse Rate 80 80 88 Pulse Rate [ Anterior Bilateral Throughout] Respiratory 31 H 30 H 29 H Rate Respiratory Rate [Anterior Bilateral Throughout] Blood Pressure 58/22 58/22 76/36 O2 Sat by Pulse 100 99 97 Oximetry 02/23/17 02/23/17 02/23/17 06:15 06:28 06:31 Temperature 98.4 F Pulse Rate 86 85 85 Pulse Rate [ Anterior Bilateral Throughout] Respiratory 30 H 30 H 30 H Rate Respiratory Rate [Anterior Bilateral Throughout] Blood Pressure 76/36 91/65 91/65 O2 Sat by Pulse 100 100 100 Oximetry 02/23/17 02/23/17 02/23/17 06:45 07:01 07:15 Temperature Pulse Rate 83 83 86 Pulse Rate [ Anterior Bilateral Throughout] Respiratory 30 H 27 H 8 L Rate Respiratory Rate [Anterior Bilateral Throughout] Blood Pressure 91/65 O2 Sat by Pulse 99 100 96 Oximetry 02/23/17 02/23/17 07:56 08:00 Temperature Pulse Rate 79 Pulse Rate [ 79 Anterior Bilateral Throughout] Respiratory Rate Respiratory 30 H Rate [Anterior Bilateral Throughout] Blood Pressure O2 Sat by Pulse 96 Oximetry - General Appearance General appearance: well-developed, appears stated age, intubated (FiO2 100%), other (on bear hugger) EENT: ATNC Neck: supple Respiratory: Present: Other (coarse breath sounds) Cardiology: regular, S1S2, no murmurs Gastrointestinal: no distended, no guarding Integumentary: no rash Neurologic: other (unresponsive) Musculoskeletal: other (no edema) - Lab 02/23/17 07:40 02/23/17 07:40 Most recent lab results Calcium 6.9 mg/dL (8.4-10.2) L 02/23/17 07:40 Magnesium 2.6 mg/dL (1.7-2.3) H 02/22/17 22:45 Urine Creatinine 105.3 mg/dL (0.1-20.0) H 02/22/17 18:30 Urine Sodium 34 mEq/L 02/22/17 18:30
[2017-02-23] MEDS: ZOSYN/NS 2.25 GM/50ML 2.25 GM/50 ML BAG IV SCH (08:42)
[2017-02-23 08:44] LABS: INR 9.64 (0.87-1.13)
[2017-02-23] MEDS: NEO-SYNEPHRINE 100 MG in NACL 0.9% 90 ML IV SCH ×2 (08:44→13:03)
[2017-02-23 08:49] LABS: Total Iron Binding Capacity 183 mcg/dL (250-450)
[2017-02-23] MEDS ORDERED: DIFLUCAN 200 MG/100 ML BAG IV SCH (10:00)
[2017-02-23 10:06] LABS: Blastocytes % (Manual) 0 %
[2017-02-23 10:07] LABS: Anisocytosis 2+
[2017-02-23 10:08] LABS: Hypochromasia 1+; Polychromasia Few
[2017-02-23 10:09] LABS: Diff Status Complete
[2017-02-23 10:10] LABS: Basophils % (Manual) 0 % (0.0-1.8); Poikilocytosis 1+
--- NOTE | 2017-02-23 10:26 | Progress Note ---
Assessment and Plan Assessment and plan: Septic shock. Patient currently on pressors. Wean pressors to maintain MAP> 65. Etiology likely secondary to right lower lobe pneumonia. Continue sepsis pathway. Continue IV antibodies. Follow-up blood cultures and trend like acid levels. Acute kidney injury. Etiology likely secondary to HELDER from ATN/sepsis +/- prerenal azotemia/vasomotor nephropathy. Continue aggressive IV fluid hydration for now. Nephrology following. Toxic metabolic encephalopathy. Also, patient with likely anoxic encephalopathy. PEA arrest 2 Acute hypoxemic respiratory failure. Continued ventilator per pulmonary. Anemia. Patient is to receive 3 units of PRBCs. Continue to follow H&H closely. Liver failure. Continue to monitor her LFTs. Coagulopathy. Etiology secondary to above. Continue FFP and vitamin K. Hematology consultation. MOSF. Severe Protein calorie malnutrition. Follow-up prealbumin. Prognosis is extremely poor. Case discussed in detail with the . The high probability of a clinically significant, sudden or life threatening deterioration of the [cardiovascular, hematological] system(s) required my full and direct attention, intervention and personal management. The aggregate critical care time was [32] minutes. This time is in addition to time spent performing reported procedures but includes the following: [x] Data Review and interpretation [x] Patient assessment and monitoring of vital signs [x] Documentation [x] Medication orders and management History Interval history: 51-year-old female with a past medical history end-stage metastatic ovarian cancer presents to the hospital with complaints of altered mental status and respiratory distress. Patient with cold blue 2 in the past 12 hours. Patient with PEA arrest 2(02/22-2354 and 02/23-0700). ACLS protocol initiated with ROSC both times. at the bedside and case discussed in detail. All questions answered. Hospitalist Physical - Constitutional Vitals: Temp Pulse Resp BP Pulse Ox 92.9 F L 80 13 91/65 97 02/23/17 08:00 02/23/17 09:31 02/23/17 09:31 02/23/17 06:45 02/23/17 09:31 General appearance: Present: severe distress, cachectic - EENT Eyes: Present: PERRL, EOM intact ENT: hearing intact, clear oral mucosa, dentition normal - Neck Neck: Present: supple, normal ROM - Respiratory Respiratory effort: normal Respiratory: bilateral: diminished, rales, rhonchi - Cardiovascular Rhythm: regular Heart Sounds: Present: S1 & S2. Absent: gallop, rub - Extremities Extremities: no ischemia, No edema, Full ROM - Abdominal General gastrointestinal: soft, non-tender, non-distended, normal bowel sounds - Integumentary Integumentary: Present: clear, warm, dry - Neurologic Neurologic: CNII-XII intact, moves all extremities Results - Labs CBC & Chem 7: 02/23/17 07:40 02/23/17 07:40 Labs: Laboratory Last Values WBC 20.1 K/mm3 (4.5-11.0) H 02/23/17 07:40 RBC 2.46 M/mm3 (3.65-5.03) L 02/23/17 07:40 Hgb 6.8 gm/dl (10.1-14.3) L 02/23/17 07:40 Hct 23.2 % (30.3-42.9) L 02/23/17 07:40 MCV 94 fl (79-97) 02/23/17 07:40 MCH 28 pg (28-32) 02/23/17 07:40 MCHC 29 % (30-34) L 02/23/17 07:40 RDW 19.3 % (13.2-15.2) H 02/23/17 07:40 Plt Count 58 K/mm3 (140-440) L 02/22/17 22:45 Add Manual Diff Complete 02/23/17 07:40 Total Counted 100 02/23/17 07:40 Seg Neutrophils % Education General Manager 02/22/17 05:40 Seg Neuts % (Manual) 42.0 % (40.0-70.0) 02/23/17 07:40 Band Neutrophils % 40.0 % 02/23/17 07:40 Lymphocytes % (Manual) 12.0 % (13.4-35.0) L 02/23/17 07:40 Reactive Lymphs % (Man) 0 % 02/23/17 07:40 Monocytes % (Manual) 4.0 % (0.0-7.3) 02/23/17 07:40 Eosinophils % (Manual) 1.0 % (0.0-4.3) 02/23/17 07:40 Basophils % (Manual) 0 % (0.0-1.8) 02/23/17 07:40 Metamyelocytes % 1.0 % 02/23/17 07:40 Myelocytes % 0 % 02/23/17 07:40 Promyelocytes % 0 % 02/23/17 07:40 Blast Cells % 0 % 02/23/17 07:40 Nucleated RBC % 32.0 % (0.0-0.9) H 02/23/17 07:40 Seg Neutrophils # Man 8.4 K/mm3 (1.8-7.7) H 02/23/17 07:40 Band Neutrophils # 8.0 K/mm3 02/23/17 07:40 Lymphocytes # (Manual) 2.4 K/mm3 (1.2-5.4) 02/23/17 07:40 Abs React Lymphs (Man) 0.0 K/mm3 02/23/17 07:40 Monocytes # (Manual) 0.8 K/mm3 (0.0-0.8) 02/23/17 07:40 Eosinophils # (Manual) 0.2 K/mm3 (0.0-0.4) 02/23/17 07:40 Basophils # (Manual) 0.0 K/mm3 (0.0-0.1) 02/23/17 07:40 Metamyelocytes # 0.2 K/mm3 02/23/17 07:40 Myelocytes # 0.0 K/mm3 02/23/17 07:40 Promyelocytes # 0.0 K/mm3 02/23/17 07:40 Blast Cells # 0.0 K/mm3 02/23/17 07:40 WBC Morphology Not Reportable 02/23/17 07:40 Hypersegmented Neuts Not Reportable 02/23/17 07:40 Hyposegmented Neuts Not Reportable 02/23/17 07:40 Hypogranular Neuts Not Reportable 02/23/17 07:40 Smudge Cells Not Reportable 02/23/17 07:40 Toxic Granulation Not Reportable 02/23/17 07:40 Toxic Vacuolation Not Reportable 02/23/17 07:40 Dohle Bodies Not Reportable 02/23/17 07:40 Pelger-Huet Anomaly Not Reportable 02/23/17 07:40 Garrison Rods Not Reportable 02/23/17 07:40 Platelet Estimate Not Reportable 02/23/17 07:40 Clumped Platelets Not Reportable 02/23/17 07:40 Plt Clumps, EDTA Not Reportable 02/23/17 07:40 Large Platelets Not Reportable 02/23/17 07:40 Giant Platelets Not Reportable 02/23/17 07:40 Platelet Satelliting Not Reportable 02/23/17 07:40 Plt Morphology Comment Not Reportable 02/23/17 07:40 RBC Morphology Not Reportable 02/23/17 07:40 Dimorphic RBCs Not Reportable 02/23/17 07:40 Polychromasia Few 02/23/17 07:40 Hypochromasia 1+ 02/23/17 07:40 Poikilocytosis 1+ 02/23/17 07:40 Anisocytosis 2+ 02/23/17 07:40 Microcytosis Not Reportable 02/23/17 07:40 Macrocytosis Not Reportable 02/23/17 07:40 Spherocytes Not Reportable 02/23/17 07:40 Pappenheimer Bodies Not Reportable 02/23/17 07:40 Sickle Cells Not Reportable 02/23/17 07:40 Target Cells Not Reportable 02/23/17 07:40 Tear Drop Cells Not Reportable 02/23/17 07:40 Ovalocytes Not Reportable 02/23/17 07:40 Stomatocytes Few 02/22/17 22:45 Helmet Cells Not Reportable 02/23/17 07:40 Olivo-Guyton Bodies Not Reportable 02/23/17 07:40 [place] Rings Not Reportable 02/23/17 07:40 Alex Cells Not Reportable 02/23/17 07:40 Bite Cells Not Reportable 02/23/17 07:40 Crenated Cell Not Reportable 02/23/17 07:40 Elliptocytes Not Reportable 02/23/17 07:40 Acanthocytes (Spur) Not Reportable 02/23/17 07:40 Rouleaux Not Reportable 02/23/17 07:40 Hemoglobin C Crystals Not Reportable 02/23/17 07:40 Schistocytes Not Reportable 02/23/17 07:40 Malaria parasites Not Reportable 02/23/17 07:40 Ford Bodies Not Reportable 02/23/17 07:40 Hem Pathologist Commnt No 02/23/17 07:40 PT 79.1 Sec. (12.2-14.9) H 02/23/17 07:40 INR 9.64 (0.87-1.13) H* 02/23/17 07:40 APTT 57.2 Sec. (24.2-36.6) H 02/23/17 07:40 Fibrinogen 164 mg/dl (211-480) L 02/23/17 07:40 D-Dimer > 41620 ng/mlDDU (0-234) H 02/23/17 07:40 POC ABG pH 6.823 (7.35-7.45) L 02/23/17 04:42 POC ABG pCO2 20.8 (35-45) L 02/23/17 04:42 POC ABG pO2 61 (80-105) L 02/23/17 04:42 POC ABG HCO3 3.4 02/23/17 04:42 POC ABG Total CO2 < 5 02/23/17 04:42 POC ABG O2 Sat 66 02/23/17 04:42 POC ABG Base Excess < -30 02/23/17 04:42 VBG pH 7.125 (7.320-7.420) L* 02/21/17 Unknown FiO2 60 % 02/23/17 04:42 Sodium 150 mmol/L (137-145) H 02/23/17 07:40 Potassium 5.1 mmol/L (3.6-5.0) H 02/23/17 07:40 Chloride 93.9 mmol/L (98-107) L 02/23/17 07:40 Carbon Dioxide 8 mmol/L (22-30) L* 02/23/17 07:40 Anion Gap 53 mmol/L 02/23/17 07:40 BUN 54 mg/dL (7-17) H 02/23/17 07:40 Creatinine 3.0 mg/dL (0.7-1.2) H 02/23/17 07:40 Estimated GFR 20 ml/min 02/23/17 07:40 BUN/Creatinine Ratio 18.00 % 02/23/17 07:40 Glucose 90 mg/dL (65-100) 02/23/17 07:40 POC Glucose 102 (70-105) 02/23/17 06:10 Hemoglobin A1c 5.2 % (4-6) 02/22/17 05:40 Lactic Acid 20.4 mmol/L (0.7-2.0) H* 02/22/17 18:30 Calcium 6.9 mg/dL (8.4-10.2) L 02/23/17 07:40 Magnesium 2.6 mg/dL (1.7-2.3) H 02/22/17 22:45 Iron 225 ug/dL (37-170) H 02/23/17 07:40 TIBC 183 mcg/dL (250-450) L 02/23/17 07:40 Ferritin > 2000.0 ng/mL (13.0-400.0) H 02/23/17 07:40 Total Bilirubin 5.2 mg/dL (0.1-1.2) H 02/22/17 Unknown AST 4008 units/L (5-40) H 02/22/17 Unknown ALT 928 units/L (7-56) H 02/22/17 Unknown Alkaline Phosphatase 692 units/L (35-129) H 02/22/17 Unknown Ammonia 107.0 umol/L (25-60) H 02/22/17 05:40 Total Creatine Kinase 29 units/L (30-135) L 02/21/17 16:30 CK-MB (CK-2) 1.4 ng/mL (0.0-4.0) 02/21/17 16:30 CK-MB (CK-2) Rel Index 4.8 (0-4) H 02/21/17 16:30 Troponin T < 0.010 ng/mL (0.00-0.029) 02/21/17 16:30 C-Reactive Protein 22.60 mg/dL (0.00-1.30) H 02/22/17 05:40 Total Protein 5.7 g/dL (6.3-8.2) L 02/22/17 Unknown Albumin 2.2 g/dL (3.9-5) L 02/22/17 Unknown Albumin/Globulin Ratio 0.6 % 02/22/17 Unknown Vitamin B12 > 2000 pg/mL (211-911) H 02/23/17 07:40 Urine Color Estrella (Yellow) 02/22/17 18:30 Urine Turbidity Cloudy (Clear) 02/22/17 18:30 Urine pH 5.0 (5.0-7.0) 02/22/17 18:30 Ur Specific [place] 1.017 (1.003-1.030) 02/22/17 18:30 Urine Protein 100 mg/dl mg/dL (Negative) 02/22/17 18:30 Urine Glucose (UA) Neg mg/dL (Negative) 02/22/17 18:30 Urine Ketones Neg mg/dL (Negative) 02/22/17 18:30 Urine Blood Mod (Negative) 02/22/17 18:30 Urine Nitrite Neg (Negative) 02/22/17 18:30 Urine Bilirubin Neg (Negative) 02/22/17 18:30 Urine Urobilinogen 2.0 mg/dL (<2.0) 02/22/17 18:30 Ur Leukocyte Esterase Tr (Negative) 02/22/17 18:30 Urine WBC (Auto) 15.0 /HPF (0.0-6.0) H 02/22/17 18:30 Urine RBC (Auto) 9.0 /HPF (0.0-6.0) 02/22/17 18:30 U Epithel Cells (Auto) 1.0 /HPF (0-13.0) 02/22/17 18:30 Hyaline Casts 50 /LPF 02/21/17 17:05 Urine Mucus Few /HPF 02/22/17 18:30 Urine Eosinophils None seen (None Seen) 02/22/17 18:30 Urine Creatinine 105.3 mg/dL (0.1-20.0) H 02/22/17 18:30 Urine Sodium 34 mEq/L 02/22/17 18:30 Blood Type B POSITIVE 02/21/17 16:25 Antibody Screen Negative 02/21/17 16:25 Crossmatch See Detail 02/21/17 16:25
[2017-02-23 10:27] LABS: Platelet Count 33 K/mm3 (140-440)
[2017-02-23] MEDS: LEVOPHED 8 MG in NACL 0.9% 250ML 242 ML IV SCH (10:35)
--- NOTE | 2017-02-23 11:06 | Progress Note ---
Assessment and Plan - Patient Problems (1) Acute hypoxemic respiratory failure Current Visit: Yes Status: Acute Plan to address problem: - continue full AC support - continue to hyperventilate re: metabolic acidosis compensation - continue bronchodilators and pulmonary toilet - continue aspiration precautions/VAP bundles (2) Severe sepsis with acute organ dysfunction Current Visit: Yes Status: Acute Plan to address problem: - continue broad spectrum AB's - continue vasopressor support - continue alkalanized fluids / bicarbonate drip - azotemia per nephrology otehrwise - hold enteral nutrition acutely (3) Coagulopathy Current Visit: Yes Status: Acute Plan to address problem: - s/p FFP's - DIC picture really - 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 (4) Discharge planning issues Current Visit: Yes Status: Acute Plan to address problem: - prognosis grave and this has been shared with ......she is critically ill on life sustaining interventions including MVS and at high risk for further deterioration including ...40' CCT Subjective Date of service: 02/23/17 Principal diagnosis: Severe Sepsis; Acute Hypoxemic Respiratory Failure Interval history: Seen and examined at bedside; 24 hour events reviewed; nursing and respiratory care staff consulted; no adverse overnight events reported to me; s/p CODE BLUE X 2; on multiple vasopressors now; without a measurable BP; + emesis and NGT connected to suction; some bleeding from side of mouth and essentially a DIC picture at this point Objective Vital Signs - 12hr 02/22/17 02/22/17 02/22/17 23:15 23:30 23:45 Temperature Pulse Rate 93 H 91 H 89 Pulse Rate [ Anterior Bilateral Throughout] Respiratory 30 H 30 H 28 H Rate Respiratory Rate [Anterior Bilateral Throughout] Blood Pressure 88/36 78/32 89/30 O2 Sat by Pulse 100 99 100 Oximetry 02/22/17 02/23/17 02/23/17 23:49 00:01 00:15 Temperature 99.4 F Pulse Rate 90 89 Pulse Rate [ Anterior Bilateral Throughout] Respiratory 23 29 H Rate Respiratory Rate [Anterior Bilateral Throughout] Blood Pressure 89/30 111/74 O2 Sat by Pulse 100 Oximetry 02/23/17 02/23/17 02/23/17 00:30 00:45 01:01 Temperature Pulse Rate 90 94 H 93 H Pulse Rate [ Anterior Bilateral Throughout] Respiratory 30 H 26 H 30 H Rate Respiratory Rate [Anterior Bilateral Throughout] Blood Pressure 92/38 92/38 79/23 O2 Sat by Pulse 100 99 100 Oximetry 02/23/17 02/23/17 02/23/17 01:15 01:20 01:31 Temperature 99.6 F Pulse Rate 91 H 88 91 H Pulse Rate [ Anterior Bilateral Throughout] Respiratory 31 H 30 H 30 H Rate Respiratory Rate [Anterior Bilateral Throughout] Blood Pressure 79/23 80/31 O2 Sat by Pulse 100 98 Oximetry 02/23/17 02/23/17 02/23/17 01:45 02:01 02:15 Temperature Pulse Rate 90 89 89 Pulse Rate [ Anterior Bilateral Throughout] Respiratory 29 H 30 H 30 H Rate Respiratory Rate [Anterior Bilateral Throughout] Blood Pressure 82/22 79/25 79/25 O2 Sat by Pulse 100 100 Oximetry 02/23/17 02/23/17 02/23/17 02:30 02:45 02:48 Temperature 99.2 F Pulse Rate 88 87 87 Pulse Rate [ Anterior Bilateral Throughout] Respiratory 30 H 30 H 30 H Rate Respiratory Rate [Anterior Bilateral Throughout] Blood Pressure 42/21 O2 Sat by Pulse 100 99 100 Oximetry 02/23/17 02/23/17 02/23/17 03:01 03:15 03:28 Temperature 98.6 F Pulse Rate 85 85 85 Pulse Rate [ Anterior Bilateral Throughout] Respiratory 30 H 29 H 30 H Rate Respiratory Rate [Anterior Bilateral Throughout] Blood Pressure 65/24 87/24 72/22 O2 Sat by Pulse 97 99 98 Oximetry 02/23/17 02/23/17 02/23/17 03:31 03:45 04:00 Temperature 98.4 F Pulse Rate 84 84 Pulse Rate [ Anterior Bilateral Throughout] Respiratory 30 H 30 H Rate Respiratory Rate [Anterior Bilateral Throughout] Blood Pressure 72/22 72/22 O2 Sat by Pulse 99 98 Oximetry 02/23/17 02/23/17 02/23/17 04:01 04:02 04:15 Temperature 98.4 F Pulse Rate 83 83 83 Pulse Rate [ Anterior Bilateral Throughout] Respiratory 30 H 30 H 26 H Rate Respiratory Rate [Anterior Bilateral Throughout] Blood Pressure 72/22 72/22 O2 Sat by Pulse 99 99 Oximetry 02/23/17 02/23/17 02/23/17 04:23 04:31 04:44 Temperature 97.4 F L Pulse Rate 83 82 83 Pulse Rate [ Anterior Bilateral Throughout] Respiratory 27 H 30 H Rate Respiratory Rate [Anterior Bilateral Throughout] Blood Pressure O2 Sat by Pulse 99 99 99 Oximetry 02/23/17 02/23/17 02/23/17 04:45 05:01 05:02 Temperature 98.2 F Pulse Rate 82 81 81 Pulse Rate [ Anterior Bilateral Throughout] Respiratory 30 H 30 H 30 H Rate Respiratory Rate [Anterior Bilateral Throughout] Blood Pressure 55/29 O2 Sat by Pulse 100 100 100 Oximetry 02/23/17 02/23/17 02/23/17 05:15 05:31 05:45 Temperature Pulse Rate 80 80 80 Pulse Rate [ Anterior Bilateral Throughout] Respiratory 31 H 31 H 30 H Rate Respiratory Rate [Anterior Bilateral Throughout] Blood Pressure 55/29 58/22 58/22 O2 Sat by Pulse 100 99 Oximetry 02/23/17 02/23/17 02/23/17 06:01 06:15 06:28 Temperature 98.4 F Pulse Rate 88 86 85 Pulse Rate [ Anterior Bilateral Throughout] Respiratory 29 H 30 H 30 H Rate Respiratory Rate [Anterior Bilateral Throughout] Blood Pressure 76/36 76/36 91/65 O2 Sat by Pulse 97 100 100 Oximetry 02/23/17 02/23/17 02/23/17 06:31 06:45 07:01 Temperature Pulse Rate 85 83 83 Pulse Rate [ Anterior Bilateral Throughout] Respiratory 30 H 30 H 27 H Rate Respiratory Rate [Anterior Bilateral Throughout] Blood Pressure 91/65 91/65 O2 Sat by Pulse 100 99 100 Oximetry 02/23/17 02/23/17 02/23/17 07:15 07:31 07:45 Temperature Pulse Rate 86 83 80 Pulse Rate [ Anterior Bilateral Throughout] Respiratory 8 L 9 L 12 Rate Respiratory Rate [Anterior Bilateral Throughout] Blood Pressure O2 Sat by Pulse 96 96 96 Oximetry 02/23/17 02/23/17 02/23/17 07:56 08:00 08:01 Temperature 92.9 F L Pulse Rate 79 80 Pulse Rate [ 79 Anterior Bilateral Throughout] Respiratory 17 Rate Respiratory 30 H Rate [Anterior Bilateral Throughout] Blood Pressure O2 Sat by Pulse 96 96 Oximetry 02/23/17 02/23/17 02/23/17 08:15 08:31 08:45 Temperature Pulse Rate 78 79 79 Pulse Rate [ Anterior Bilateral Throughout] Respiratory 20 14 18 Rate Respiratory Rate [Anterior Bilateral Throughout] Blood Pressure O2 Sat by Pulse 94 92 91 Oximetry 02/23/17 02/23/17 02/23/17 09:01 09:15 09:31 Temperature Pulse Rate 79 79 80 Pulse Rate [ Anterior Bilateral Throughout] Respiratory 18 9 L 13 Rate Respiratory Rate [Anterior Bilateral Throughout] Blood Pressure O2 Sat by Pulse 92 94 97 Oximetry 02/23/17 02/23/17 02/23/17 09:41 09:45 09:51 Temperature Pulse Rate 80 79 79 Pulse Rate [ Anterior Bilateral Throughout] Respiratory 13 23 20 Rate Respiratory Rate [Anterior Bilateral Throughout] Blood Pressure O2 Sat by Pulse 97 97 Oximetry 02/23/17 02/23/17 02/23/17 09:55 10:00 10:06 Temperature Pulse Rate 79 79 79 Pulse Rate [ Anterior Bilateral Throughout] Respiratory 23 22 27 H Rate Respiratory Rate [Anterior Bilateral Throughout] Blood Pressure O2 Sat by Pulse 97 97 97 Oximetry 02/23/17 02/23/17 02/23/17 10:11 10:15 10:21 Temperature Pulse Rate 80 79 78 Pulse Rate [ Anterior Bilateral Throughout] Respiratory 20 9 L 26 H Rate Respiratory Rate [Anterior Bilateral Throughout] Blood Pressure 86/65 O2 Sat by Pulse 97 98 99 Oximetry 02/23/17 02/23/17 10:25 10:31 Temperature Pulse Rate 86 78 Pulse Rate [ Anterior Bilateral Throughout] Respiratory 24 27 H Rate Respiratory Rate [Anterior Bilateral Throughout] Blood Pressure 86/65 86/65 O2 Sat by Pulse 98 98 Oximetry Constitutional: other (obtunded) Eyes: icteric ENT: oropharynx moist Neck: supple, no lymphadenopathy Effort: mildly labored Ascultation: Bilateral: diminished breath sounds, rales Cardiovascular: regular rate and rhythm Gastrointestinal: hypoactive bowel sounds, soft, non-tender, non-distended Integumentary: normal Extremities: no cyanosis, pulses normal, no ischemia or petechiae, edema Neurologic: unable to assess Psychiatric: other (obtunded) CBC and BMP: 02/23/17 07:40 02/23/17 07:40 ABG, PT/INR, D-dimer: ABG POC ABG pH 6.823 (7.35-7.45) L 02/23/17 04:42 POC ABG pCO2 20.8 (35-45) L 02/23/17 04:42 POC ABG pO2 61 (80-105) L 02/23/17 04:42 POC ABG HCO3 3.4 02/23/17 04:42 POC ABG Total CO2 < 5 02/23/17 04:42 POC ABG O2 Sat 66 02/23/17 04:42 PT/INR, D-dimer PT 79.1 Sec. (12.2-14.9) H 02/23/17 07:40 INR 9.64 (0.87-1.13) H* 02/23/17 07:40 D-Dimer > 66200 ng/mlDDU (0-234) H 02/23/17 07:40 Abnormal lab findings: Abnormal Labs 02/21/17 02/21/17 02/21/17 Unknown Unknown Unknown WBC RBC Hgb Hct MCH MCHC RDW Plt Count Seg Neuts % (Manual) Lymphocytes % (Manual) Eosinophils % (Manual) Nucleated RBC % Seg Neutrophils # Man Monocytes # (Manual) Eosinophils # (Manual) PT INR APTT Fibrinogen D-Dimer POC ABG pH POC ABG pCO2 POC ABG pO2 VBG pH 7.125 L* Sodium Potassium Chloride Carbon Dioxide BUN Creatinine Glucose POC Glucose Lactic Acid 18.4 H* Calcium Magnesium Iron TIBC Ferritin Total Bilirubin AST ALT Alkaline Phosphatase Ammonia 134.0 H C-Reactive Protein Total Protein Albumin Vitamin B12 Urine WBC (Auto) Urine Creatinine 02/22/17 02/22/17 02/22/17 00:20 00:25 03:51 WBC RBC Hgb Hct MCH MCHC RDW Plt Count Seg Neuts % (Manual) Lymphocytes % (Manual) Eosinophils % (Manual) Nucleated RBC % Seg Neutrophils # Man Monocytes # (Manual) Eosinophils # (Manual) PT INR APTT Fibrinogen D-Dimer POC ABG pH 7.060 L 7.113 L POC ABG pCO2 22.6 L 24.5 L POC ABG pO2 113 H VBG pH Sodium Potassium Chloride Carbon Dioxide BUN Creatinine Glucose POC Glucose < 40 L Lactic Acid Calcium Magnesium Iron TIBC Ferritin Total Bilirubin AST ALT Alkaline Phosphatase Ammonia C-Reactive Protein Total Protein Albumin Vitamin B12 Urine WBC (Auto) Urine Creatinine 02/22/17 02/22/17 02/22/17 05:40 05:40 05:40 WBC 25.7 H RBC 3.01 L Hgb 8.0 L D Hct 26.5 L D MCH 27 L MCHC RDW 22.2 H Plt Count 79 L Seg Neuts % (Manual) 37.0 L Lymphocytes % (Manual) 9.0 L Eosinophils % (Manual) Nucleated RBC % 19.0 H Seg Neutrophils # Man 9.5 H Monocytes # (Manual) 1.0 H Eosinophils # (Manual) PT INR APTT Fibrinogen D-Dimer POC ABG pH POC ABG pCO2 POC ABG pO2 VBG pH Sodium Potassium Chloride Carbon Dioxide 9 L* BUN 62 H Creatinine 2.3 H Glucose 42 L POC Glucose Lactic Acid Calcium 7.2 L D Magnesium Iron TIBC Ferritin Total Bilirubin 5.4 H AST 3388 H ALT 676 H Alkaline Phosphatase 530 H Ammonia 107.0 H C-Reactive Protein Total Protein 6.0 L Albumin 1.9 L Vitamin B12 Urine WBC (Auto) Urine Creatinine 02/22/17 02/22/17 02/22/17 05:40 05:40 06:13 WBC RBC Hgb Hct MCH MCHC RDW Plt Count Seg Neuts % (Manual) Lymphocytes % (Manual) Eosinophils % (Manual) Nucleated RBC % Seg Neutrophils # Man Monocytes # (Manual) Eosinophils # (Manual) PT 89.6 H INR 11.28 H* APTT 49.7 H Fibrinogen D-Dimer POC ABG pH 7.210 L POC ABG pCO2 23.0 L POC ABG pO2 VBG pH Sodium Potassium Chloride Carbon Dioxide BUN Creatinine Glucose POC Glucose Lactic Acid Calcium Magnesium Iron TIBC Ferritin Total Bilirubin AST ALT Alkaline Phosphatase Ammonia C-Reactive Protein 22.60 H Total Protein Albumin Vitamin B12 Urine WBC (Auto) Urine Creatinine 02/22/17 02/22/17 02/22/17 09:25 10:11 11:07 WBC RBC Hgb Hct MCH MCHC RDW Plt Count Seg Neuts % (Manual) Lymphocytes % (Manual) Eosinophils % (Manual) Nucleated RBC % Seg Neutrophils # Man Monocytes # (Manual) Eosinophils # (Manual) PT INR APTT Fibrinogen D-Dimer POC ABG pH POC ABG pCO2 POC ABG pO2 VBG pH Sodium Potassium Chloride Carbon Dioxide BUN Creatinine Glucose POC Glucose 60 L 125 H Lactic Acid 18.8 H* Calcium Magnesium Iron TIBC Ferritin Total Bilirubin AST ALT Alkaline Phosphatase Ammonia C-Reactive Protein Total Protein Albumin Vitamin B12 Urine WBC (Auto) Urine Creatinine 02/22/17 02/22/17 02/22/17 11:52 14:43 18:30 WBC RBC Hgb Hct MCH MCHC RDW Plt Count Seg Neuts % (Manual) Lymphocytes % (Manual) Eosinophils % (Manual) Nucleated RBC % Seg Neutrophils # Man Monocytes # (Manual) Eosinophils # (Manual) PT 71.2 H INR 8.44 H* APTT Fibrinogen D-Dimer POC ABG pH POC ABG pCO2 POC ABG pO2 VBG pH Sodium Potassium Chloride Carbon Dioxide BUN Creatinine Glucose POC Glucose 130 H Lactic Acid Calcium Magnesium Iron TIBC Ferritin Total Bilirubin AST ALT Alkaline Phosphatase Ammonia C-Reactive Protein Total Protein Albumin Vitamin B12 Urine WBC (Auto) 15.0 H Urine Creatinine 02/22/17 02/22/17 02/22/17 18:30 18:30 20:17 WBC RBC Hgb Hct MCH MCHC RDW Plt Count Seg Neuts % (Manual) Lymphocytes % (Manual) Eosinophils % (Manual) Nucleated RBC % Seg Neutrophils # Man Monocytes # (Manual) Eosinophils # (Manual) PT INR APTT Fibrinogen D-Dimer POC ABG pH POC ABG pCO2 POC ABG pO2 VBG pH Sodium Potassium Chloride Carbon Dioxide BUN Creatinine Glucose POC Glucose 68 L Lactic Acid 20.4 H* Calcium Magnesium Iron TIBC Ferritin Total Bilirubin AST ALT Alkaline Phosphatase Ammonia C-Reactive Protein Total Protein Albumin Vitamin B12 Urine WBC (Auto) Urine Creatinine 105.3 H 02/22/17 02/22/17 02/22/17 22:03 22:45 22:45 WBC 24.1 H RBC 2.29 L Hgb 6.1 L Hct 21.6 L MCH 27 L MCHC 28 L RDW 23.1 H Plt Count 58 L Seg Neuts % (Manual) Lymphocytes % (Manual) 13.0 L Eosinophils % (Manual) 5.0 H Nucleated RBC % 35.0 H Seg Neutrophils # Man 9.9 H Monocytes # (Manual) Eosinophils # (Manual) 1.2 H PT INR APTT Fibrinogen D-Dimer POC ABG pH POC ABG pCO2 POC ABG pO2 VBG pH Sodium 146 H Potassium Chloride 95.8 L Carbon Dioxide 7 L* BUN 61 H Creatinine 2.9 H Glucose 138 H POC Glucose 119 H Lactic Acid Calcium 7.3 L Magnesium 2.6 H Iron TIBC Ferritin Total Bilirubin AST ALT Alkaline Phosphatase Ammonia C-Reactive Protein Total Protein Albumin Vitamin B12 Urine WBC (Auto) Urine Creatinine 02/22/17 02/23/17 02/23/17 Unknown 00:20 02:38 WBC RBC Hgb Hct MCH MCHC RDW Plt Count Seg Neuts % (Manual) Lymphocytes % (Manual) Eosinophils % (Manual) Nucleated RBC % Seg Neutrophils # Man Monocytes # (Manual) Eosinophils # (Manual) PT INR APTT Fibrinogen D-Dimer POC ABG pH 6.909 L POC ABG pCO2 28.8 L POC ABG pO2 39 L VBG pH Sodium Potassium Chloride 95.5 L Carbon Dioxide 4 L* BUN 59 H Creatinine 2.8 H Glucose 132 H POC Glucose 62 L Lactic Acid Calcium 7.2 L Magnesium Iron TIBC Ferritin Total Bilirubin 5.2 H AST 4008 H ALT 928 H Alkaline Phosphatase 692 H Ammonia C-Reactive Protein Total Protein 5.7 L Albumin 2.2 L Vitamin B12 Urine WBC (Auto) Urine Creatinine 02/23/17 02/23/17 02/23/17 04:42 07:40 07:40 WBC 20.1 H RBC 2.46 L Hgb 6.8 L Hct 23.2 L MCH MCHC 29 L RDW 19.3 H Plt Count 33 L Seg Neuts % (Manual) Lymphocytes % (Manual) 12.0 L Eosinophils % (Manual) Nucleated RBC % 32.0 H Seg Neutrophils # Man 8.4 H Monocytes # (Manual) Eosinophils # (Manual) PT INR APTT Fibrinogen D-Dimer POC ABG pH 6.823 L POC ABG pCO2 20.8 L POC ABG pO2 61 L VBG pH Sodium 150 H Potassium 5.1 H Chloride 93.9 L Carbon Dioxide 8 L* BUN 54 H Creatinine 3.0 H Glucose POC Glucose Lactic Acid Calcium 6.9 L Magnesium Iron TIBC Ferritin Total Bilirubin AST ALT Alkaline Phosphatase Ammonia C-Reactive Protein Total Protein Albumin Vitamin B12 Urine WBC (Auto) Urine Creatinine 02/23/17 02/23/17 02/23/17 07:40 07:40 07:40 WBC RBC Hgb Hct MCH MCHC RDW Plt Count Seg Neuts % (Manual) Lymphocytes % (Manual) Eosinophils % (Manual) Nucleated RBC % Seg Neutrophils # Man Monocytes # (Manual) Eosinophils # (Manual) PT 79.1 H INR 9.64 H* APTT 57.2 H Fibrinogen 164 L D-Dimer > 54423 H POC ABG pH POC ABG pCO2 POC ABG pO2 VBG pH Sodium Potassium Chloride Carbon Dioxide BUN Creatinine Glucose POC Glucose Lactic Acid Calcium Magnesium Iron 225 H TIBC 183 L Ferritin Total Bilirubin AST ALT Alkaline Phosphatase Ammonia C-Reactive Protein Total Protein Albumin Vitamin B12 Urine WBC (Auto) Urine Creatinine 02/23/17 02/23/17 07:40 07:40 WBC RBC Hgb Hct MCH MCHC RDW Plt Count Seg Neuts % (Manual) Lymphocytes % (Manual) Eosinophils % (Manual) Nucleated RBC % Seg Neutrophils # Man Monocytes # (Manual) Eosinophils # (Manual) PT INR APTT Fibrinogen D-Dimer POC ABG pH POC ABG pCO2 POC ABG pO2 VBG pH Sodium Potassium Chloride Carbon Dioxide BUN Creatinine Glucose POC Glucose Lactic Acid Calcium Magnesium Iron TIBC Ferritin > 2000.0 H Total Bilirubin AST ALT Alkaline Phosphatase Ammonia C-Reactive Protein Total Protein Albumin Vitamin B12 > 2000 H Urine WBC (Auto) Urine Creatinine
[2017-02-23] MEDS ORDERED: NACL 0.9% 1000 ML ONE (11:22)
[2017-02-23] MEDS ORDERED: ZOSYN/NS 2.25 GM/50ML 2.25 GM/50 ML BAG IV SCH (14:00)
[2017-02-23] MEDS ORDERED: CALCIUM CHLORIDE IV ONE (14:37)
[2017-02-23] MEDS ORDERED: ADRENALIN ONE (14:37)
[2017-02-23 14:47] VITALS: BP 58/20
--- NOTE | 2017-02-23 17:30 | Event Note ---
Date: 02/23/17 i was asked to pronounce the of the patient and I went to the room and i pronounce at 17:20.
--- NOTE | 2017-02-24 10:37 | Death Summary ---
Summary - Providers Date of service: 02/24/17 Consults: 02/21/17 19:28 Consult to Physician [CONS] Routine Consulting Provider: FELIPA HOUSTON Reason For Exam: elevated LFTs and ammonia level and coagulopathy, Place consult to:: Dr. Shabazz Notified:: please call 02/21/17 19:38 Consult to Physician [CONS] Routine Consulting Provider: AME ZAMORANO Reason For Exam: septic shock Place consult to:: Dr. Shabazz Notified:: please call 02/22/17 12:36 Consult to Physician [CONS] Routine Consulting Provider: RAMESH CARLSON I Reason For Exam: HELDER Place consult to:: office Notified:: yes Phone number called:: [phone] Was contact made?: No If yes, spoke with:: olaf 02/22/17 12:40 Consult to Physician [CONS] Routine Consulting Provider: PADMINI CURIEL Reason For Exam: coagulopathy; metastatic ovarian cancer per histor Place consult to:: office Notified:: yes Phone number called:: [phone] If yes, spoke with:: fara Time called:: 13:20 Attending: RORY CHAU - summary Date of admission: 02/21/17 19:22 Date of : 02/23/17 Reason for admission: AMS Disposition: The patient is a 51-year-old AAF with a medical history significant for Advanced metastatic Ovarian cancer presented to the hospital with complaints of altered mental status and respiratory distress. Son stated that the patient has chronic poor appetite and appeared unwell but was responsive. EMS reported difficulty breathing and accucheck in the 50s. Upon arrival to ER patient was having agonal respirations and minimally responsive therefore she was intubated. On admission, her creatinine was 2.1, bicarb 7, Lactate 18.4 with severe hypotension requiring Levophed drip. Patient was noted to have severe coagulopathy, septic shock, severe anemia and overall poor prognosis. The poor prognosis was conveyed by multiple doctors. Patient eventually developed multiorgan system failure. Patient had a CODE BLUE 2 with PEA arrest during the hospitalization as well. Please see code chart for details. Eventually patient was made a DO NOT RESUSCITATE. Forcefully, patient later at 1720 on 02/23/17. - Final diagnosis (1) Acute hypoxemic respiratory failure Note: Final diagnosis: (2) Acute kidney injury Note: Final diagnosis: (3) Altered mental status Qualifiers: Altered mental status type: A Coma depth: C Coma timing: C Note: Final diagnosis: (4) Anemia Qualifiers: Anemia type: A Iron deficiency anemia type: I Vitamin B12 deficiency anemia type: V Folate deficiency anemia type: F Bone marrow failure anemia type: B Hemolytic anemia type: H Other causes of anemia: O Note: Final diagnosis: (5) Coagulopathy Note: Final diagnosis: (6) Hepatic encephalopathy Note: Final diagnosis: (7) Hyperkalemia Note: Final diagnosis: (8) Hypoglycemia Note: Final diagnosis: (9) Leukocytosis Qualifiers: Leukocytosis type: L Note: Final diagnosis: (10) Liver failure Qualifiers: Liver failure chronicity: acute Hepatic coma status: with hepatic coma Qualified Code(s): K72.01 - Acute and subacute hepatic failure with coma Note: Final diagnosis: (11) Renal insufficiency Note: Final diagnosis: (12) Septic shock Note: Final diagnosis: (13) Severe sepsis with acute organ dysfunction Note: Final diagnosis: (14) Liver metastases Note: Final diagnosis: (15) Ovarian cancer Qualifiers: Laterality: L Note: Final diagnosis:
== END 2017-02-23 19:18 | DRG 871 ==
LOC: ED 16:02 → CC1 19:22
PROVIDERS: ADMIT Internal Medicine; ATTEND Hospitalist
PROC: 5A1945Z Respiratory Ventilation, 24-96 Consecutive Hours (ICD-10-PCS; principal; 2017-02-21)
PROC: 0BH17EZ Insertion of Endotracheal Airway into Trachea, Via Natural or Artificial Opening (ICD-10-PCS; 2017-02-21)
PROC: 4A033R1 Measurement of Arterial Saturation, Peripheral, Percutaneous Approach (ICD-10-PCS; 2017-02-21)
PROC: 05HQ33Z Insertion of Infusion Device into Left External Jugular Vein, Percutaneous Approach (ICD-10-PCS; 2017-02-21)
PROC: 30233N1 Transfusion of Nonautologous Red Blood Cells into Peripheral Vein, Percutaneous Approach (ICD-10-PCS; 2017-02-21)
PROC: 30233L1 Transfusion of Nonautologous Fresh Plasma into Peripheral Vein, Percutaneous Approach (ICD-10-PCS; 2017-02-21)
PROC: 30233K1 Transfusion of Nonautologous Frozen Plasma into Peripheral Vein, Percutaneous Approach (ICD-10-PCS; 2017-02-21)
DX: A41.9 Sepsis, unspecified organism (principal); N17.0 Acute kidney failure with tubular necrosis; J96.01 Acute respiratory failure with hypoxia; G92 Toxic encephalopathy; E43 Unspecified severe protein-calorie malnutrition; K72.01 Acute and subacute hepatic failure with coma; J18.9 Pneumonia, unspecified organism; R65.21 Severe sepsis with septic shock; D65 Disseminated intravascular coagulation [defibrination syndrome]; C56.9 Malignant neoplasm of unspecified ovary; D68.9 Coagulation defect, unspecified; C78.7 Secondary malignant neoplasm of liver and intrahepatic bile duct; D62 Acute posthemorrhagic anemia; Z66 Do not resuscitate; R34 Anuria and oliguria; E16.2 Hypoglycemia, unspecified; T68.XXXA Hypothermia, initial encounter; E87.5 Hyperkalemia; T45.515A Adverse effect of anticoagulants, initial encounter; D64.81 Anemia due to antineoplastic chemotherapy; Z68.29 Body mass index [BMI] 29.0-29.9, adult; Z90.710 Acquired absence of both cervix and uterus; Z83.3 Family history of diabetes mellitus
CPT/HCPCS: 36415; 36600; 71010; 80048; 80053; 81001; 82140; 82271; 82533; 82550; 82553; 82570; 82607; 82728; 82747; 82803; 82805; 82962; 83036; 83550; 83735; 84300; 84484; 85007; 85025; 85379; 85384; 85610; 85730; 86140; 86850; 86900; 86901; 86920; 87040; 87070; 87086; 87205; 89050; 92950; 93005; 93010; 94002; 94003; 94640; 96361; 96374; 96375; C9113; J0171; J0330; J1170; J1265; J1450; J1815; J1956; J2270; J2370; J2543; J3010; J3370; J3430; J7030; J7040; J7050; J7070; P9016; P9017